=== PATIENT | female | born 1970 | race Caucasian/White ===

== ENCOUNTER 2020-01-09 15:03 | Inpatient (IN) | payer OTHER, MEDICAID, SELFPAY ==
[2020-01-09] VITALS (11 sets, daily range): BP systolic 109–139; BP diastolic 60–78; PULSE 84–108; RESP 17–33; TEMP 37.1–37.5; O2SAT 86–97; BMI 33.8
--- NOTE | ~2020-01-09 | US_ITS ---
EXAMINATION: US renal BI DATE: 01/10/2020 16:40 INDICATION: Left renal lesion TECHNIQUE: Multiple ultrasound grayscale images of the kidneys were obtained. COMPARISON: None. FINDINGS: The right kidney measures 9.9 x 5.0 x 4.9 cm. The left kidney measures 9.9 x 6.7 x 5.4 cm. The kidney s demonstrate normal echogenicity. 1.5 similar anechoic parapelvic cyst at the right kidney. There ar e a couple additional anechoic parapelvic cysts measuring 1.8 cm and 1.7 cm in the upper and lower po les of the left kidney respectively. There is a 2.8 cm lesion at the upper pole of the right kidney w hich appears partially anechoic and partially hypoechoic with suggestion of a small focus of internal vascular flow on color Doppler which raises concern for cystic neoplasm. There is no hydronephrosis in either kidney. No stones identified. The bladder is normal. IMPRESSION: 1. Indeterminate 2.8 cm likely complex cystic lesion at the left kidney with suggestion of some inte rnal flow on color Doppler which raises concern for renal cell carcinoma. Would recommend further sona luation with pre and postcontrast MRI for more definitive determination. Reviewed, dictated and finalized at location . [employer] IMPRESSION: 1. Indeterminate 2.8 cm likely complex cystic lesion at the left kidney with s uggestion of some internal flow on color Doppler which raises concern for renal cell carcinoma. Would recommend further evaluation with pre and postcontrast M RI for more definitive determination.
--- NOTE | ~2020-01-09 | XR_ITS ---
EXAMINATION: XR chest 1V portable DATE: 01/09/2020 17:44 INDICATION: Cough, dyspnea and body aches. COVID positive. TECHNIQUE: frontal view of the chest was obtained. COMPARISON: None FINDINGS: Mild scattered bilateral airspace opacities most prominent in the right midlung zone consistent with pneumonia. No pleural effusion or pneumothorax. The cardiomediastinal silhouette is normal. Mild thor acic spondylosis. IMPRESSION: 1. Bilateral airspace opacities most prominent in the right midlung consistent with pneumonia. Reviewed, dictated and finalized at location H. IER LOADER
--- NOTE | ~2020-01-09 | CT_ITS ---
EXAMINATION: CTA chest PE protocol EXAM DATE: 01/10/2020 15:25 INDICATION: Pleuritic discomfort, hypoxia, COVID-19. TECHNIQUE: Spiral CTA of the chest (pulmonary arteries) was performed with 100 cc Omnipaque 350 intr avenous contrast injection. Images were acquired during the pulmonary arterial phase. Coronal maxi mum intensity projection 3D-reconstructions were created by the technologist on dedicated workstation . Axial, coronal and sagittal reformatted images were reviewed. The dose-length product (DLP) for t his examination was 637.92 mGy-cm. The exposure was tailored according to patient size (auto mA exp osure control), and iterative reconstruction (ASIR) was used as additional dose reduction technique. There is no prior study for comparison. FINDINGS: Pulmonary arteries are well opacified and without intraluminal filling defects. No thora cic aortic dissection. Patchy bilateral peripheral predominant groundglass opacities with more confl uent atelectasis at dependent aspects of both lungs. Probably COVID-19 pneumonia. There are no pleur al or pericardial effusions. Tracheobronchial tree is patent. There is no mediastinal, hilar or a xillary lymphadenopathy. There is no pneumothorax. Heart normal in size. No evidence of coronar y arterial calcification. 2.5 cm lesion superior medial aspect right kidney, could be proteinaceous cyst but can't exclude cystic renal cell cancer; recommend follow-up ultrasound. There is thoracic s pondylosis without osteoblastic or osteolytic lesions identified. IMPRESSION: 1. Patchy bilateral peripheral ground glass opacities likely acute infectious process, such as COVID -19. 2. Dependent subsegmental atelectasis bilaterally. 3. Left renal lesion most likely hemorrhagic cyst but recommend kidney ultrasound for further evalua tion. Reviewed, dictated and finalized at location A. [employer] IMPRESSION: 1. Patchy bilateral peripheral ground glass opacities likely acute infectious process, such as COVID-19. 2. Dependent subsegmental atelectasis bilaterally. 3. Left renal lesion most likely hemorrhagic cyst but recommend kidney ultraso und for further evaluation.
--- NOTE | 2020-01-09 15:38 | ECG_ITS ---
Measurements Intervals [place] Rate: 89 P: 22 OK: 126 QRS: 22 QRSD: 89 T: 6 QT: 369 QTc: 451 Interpretive Statements SINUS RHYTHM BORDERLINE ST-T WAVE ABNORMALITY- DIFFUSE LEADS BASELINE ARTIFACT- I, III, AVL BORDERLINE ECG Electronically Signed On 01-10-2020 8:39:02 [employer]ACH[employer] by Pete Thompson D.O.
[2020-01-09 15:56] LABS: Basophils Percent Auto 0.2 % (0.2-1.2); Hematocrit 38.8 % (37.0-47.0); Hemoglobin 12.9 g/dL (12.0-15.0); Immature Granulocyte Absolute 0.02 K/mm3 (0.00-0.031); Immature Granulocyte Percent A 0.5 % (0-0.5); Lymphocytes Absolute Auto 0.93 K/mm3 (0.9-3.2); Lymphocytes Percent Auto 22.9 % (18.3-44.2); Mean Corpuscular HGB Conc 33.2 g/dl (32-36); Mean Corpuscular Volume 87.2 fl (80-100); Mean Platelet Volume 9.9 fl (7.4-10.4); Monocytes Absolute Auto 0.4 K/mm3 (0.1-0.6); Monocytes Percent Auto 10.1 % (2.6-8.5); Neutrophils Absolute Auto 2.7 K/mm3 (1.3-6.7); Neutrophils Percent Auto 66.3 % (45.5-73.1); Platelet Count Result 197 k/mm3 (150-375); Red Blood Count 4.45 M/mm3 (4.2-5.4); Red Cell Distribution Width 14.7 % (11.5-14.5); White Blood Count 4.1 K/mm3 (4.5-10.0)
[2020-01-09 16:04] LABS: Anion Gap 10 mmol/L (8-16); Blood Urea Nitrogen 9 mg/dL (7-17); Calcium 9.4 mg/dL (8.4-10.2); Carbon Dioxide 26 mmol/L (22-30); Chloride 103 mmol/L (98-107); Estimated CRCL calculation 80 ml/min; Estimated Glomerular Filt Rate > 60; Glucose 108 mg/dL (65-105); Potassium 4.1 mmol/L (3.4-5.0); Sodium 139 mmol/L (137-145)
[2020-01-09 16:13] LABS: Atypical Lymphocytes Present; Platelet Estimate Adequate (Adequate)
--- NOTE | 2020-01-09 17:59 | ED.SOB ---
HPI - SOB/Dyspnea General Chief Complaint: Shortness of Breath/Dyspnea Stated Complaint: + covid, sob Time Seen by Provider: 01/09/20 17:27 Source: patient Mode of arrival: wheelchair Limitations: no limitations History of Present Illness HPI Narrative: This is a 49 year old female that presents to the ER for shortness of breath x 5 days. Reports she was recently diagnosed with COVID. Reports fever, shortness of breath, myalgias, cough, congestion, and nausea. Denies chest pain or lower extremity edema. Related Data Allergies Allergy/AdvReac Type Severity Reaction Status Date / Time codeine Allergy Verified 07/23/11 16:05 Review of Systems Review of Systems: Narrative: CONSTITUTIONAL: Reports fever, chills ENT: Reports rhinorrhea, congestion CARDIOVASCULAR: Denies chest pain, or edema. RESPIRATORY: Reports cough and dyspnea. GASTROINTESTINAL: Reports nausea. Denies vomiting MUSCULOSKELETAL: Reports myalgia. All systems reviewed & are unremarkable except as noted in HPI and below PMFSH Past Medical History Medical History (Updated 01/09/20 @ 21:03 by Maggie Hidalgo PA-C) History of emphysema History of hypertension Surgical History Surgical History (Updated 01/09/20 @ 18:02 by Maggie Hidalgo PA-C) History of carpal tunnel release History of section Social History Social History (Updated 01/09/20 @ 18:02 by Maggie Hidalgo PA-C) Smoking status: Former smoker Exam Narrative: Exam Narrative: GENERAL: Well-appearing, well-nourished, and in no acute distress HEAD: Normocephalic, atraumatic. EYES: EOMI. ENT: Nares clear, no rhinorrhea or epistaxis. Mucous membranes moist. Oropharynx without tonsillar hypertrophy exudate or other lesions. Bilateral TMs pearly plummer non-bulging NECK: Supple. No adenopathy or masses. CHEST: No respiratory distress. Scattered rales bilaterally. No wheezes or rhonchi HEART: Regular rate and rhythm. No murmur heard. Normal peripheral pulses. EXTREMITIES: Normal range of motion. No edema. SKIN: Warm, dry, no rash. NEURO: No focal deficits. Alert and oriented x3. PSYCH: Normal mood and affect Course Consultations Consultation #1: Spoke with hospitalist about patient and work-up who accepts admission. Date: 01/09/20 Time: 21:02 Vital Signs Vital signs: Vital Signs Temperature 98.8 F 01/09/20 15:09 Pulse Rate 105 H 01/09/20 15:09 Respiratory Rate 23 H 01/09/20 15:09 Blood Pressure 139/78 01/09/20 15:09 Pulse Oximetry 92 01/09/20 15:09 Temperature 99.5 F 01/09/20 20:10 Pulse Rate 92 01/09/20 20:10 Respiratory Rate 18 01/09/20 20:10 Blood Pressure 123/74 01/09/20 20:10 Pulse Oximetry 93 01/09/20 20:10 MDM - SOB/Dyspnea MDM Narrative Medical decision making narrative: Patient presents to the emergency department for increasing shortness of breath after recently being diagnosed with coronavirus. Oxygen saturation was in the high 80s on room air. Patient initially placed on 4 L nasal cannula with normalization. Currently is maintaining oxygen saturation at 2 L via nasal cannula. She is afebrile and nontoxic-appearing. CBC is without leukocytosis. Metabolic panel shows mild transaminitis. LDH is elevated. Ferritin, lactic acid are normal. Chest x-ray shows bilateral airspace opacities consistent with Covid pneumonia. EKG with nonspecific ST changes. She denies any current chest pain. Spoke with hospitalist about patient and work-up who accepts admission. Patient started on Decadron in the ED and given albuterol inhaler with some improvement Lab Data Attestation: I reviewed the patient's lab results. Result diagrams: 01/09/20 15:46 01/09/20 15:46 Labs: Lab Results 01/09/20 01/09/20 01/09/20 Range/Units 15:46 15:46 18:18 WBC 4.1 L (4.5-10.0) K/mm3 RBC 4.45 (4.2-5.4) M/mm3 Hgb 12.9 (12.0-15.0) g/dL Hct 38.8 (37.0-47.0) % MCV 87.2 (80-100) fl MCH 29.0 (26-34) p
[2020-01-09 18:24] LABS: Alveolar/Arterial O2 Gradient 108.1 mmHg; Base Excess ABG -3.8 mEq/l (+/-2.0); Carboxyhemoglobin 1.3 % THb (0-2.0); Device NASAL CANNULA; Fractional Inspired Oxygen 30 %; HCO3 ABG 18.8 mEq/l (22.0-26.0); Liters per Minute 2.5 LPM; Methemoglobin ABG 0.3 %THb (0-1.5); Modified Allen's Test Pass; Oxygen Content ABG 17.1 %vol (16.0-22.0); Oxygen Saturation ABG 95.6 % (95.0-100.0); Oxyhemoglobin 92.1 % THb (90.0-100.0); PCO2 ABG 27.6 mmHg (35.0-45.0); PO2 ABG 73.4 mmHg (80.0-100.0); PO2 FiO2 Ratio Arterial Blood 2.45 %; Reduced Hemoglobin 6.3 %THb (0-5.0); Site Drawn RIGHT RADIAL; Total Hemoglobin 13.2 g/dL (12.0-18.0); pH ABG 7.451 (7.350-7.450)
[2020-01-09] MEDS: ALBUTEROL SULFATE (*SP) AEROSOL 1 PUFF 2 PUFF INHALATION (18:25)
[2020-01-09] MEDS: DEXAMETHASONE SOD PHOS INJ 4 MG/ML VIAL 6 MG IV PUSH (18:31)
[2020-01-09] MEDS: SODIUM CHLORIDE 0.9% IV 500 ML 999 ML IV CONT (18:31)
[2020-01-09 18:39] LABS: Lactic Acid Reflex 1.1 mmol/L (0.7-2.1)
[2020-01-09 18:41] LABS: Alanine Aminotransferase 40 U/L (4-35); Albumin Level 4.3 g/dL (3.5-5.1); Alkaline Phosphatase 60 U/L (38-126); Aspartate Amino Transferase 50 U/L (14-36); Bilirubin,Total 0.5 mg/dL (0.2-1.3); Lactate Dehydrogenase 992 U/L (313-618)
[2020-01-09 18:45] LABS: CRP 2.8 mg/dL (<1.0)
[2020-01-09 18:49] LABS: NT Pro B Type Natriuretic Pept 129 PG/ML (5-100)
--- NOTE | 2020-01-09 22:41 | ADMGEN ---
This patient, Oanh Nelson, was admitted to 3 [facility] Surg Room 327-01. Patient/family oriented to hospital policies and general routines including ID bracelet, bed and alarms, visiting hours, pain management, procedures, bathroom and other care routines, personal items, smoking policy, room service/diet, and visiting hours. Information on how to activate the Rapid Response Team has been discussed. Patient/Family are encouraged to report perceived risks to care and to ask questions if they do not understand what they are told or what they should do.
[2020-01-10] VITALS (13 sets, daily range): BP systolic 122–137; BP diastolic 71–77; PULSE 72–92; RESP 16–20; TEMP 35.9–36.9; O2SAT 87–93
--- NOTE | 2020-01-10 01:51 | PM.IMHP ---
H&P: HPI History of Present Illness Date/Time: 01/10/20 01:51 Chief complaint: Acute respiratory failure with hypoxemia Narrative: This is an obese 49-year-old female with known past medical history of emphysema, depression, and hypertension who presented to the hospital with a complaint of 4 days of increased shortness of breath. Associated symptoms include fever, generalized weakness, body aches, hacking cough, nausea, and congestion. She denies any chest pain, palpitations, abdominal pain, vomiting, dysuria, hematuria, diarrhea, lower extremity swelling, black stools, or rectal bleeding. she does report decreased urine output and states that her urine is dark in color. She recently tested positive for COVID-19. She reports positive sick contacts as her niece also is positive with Coronavirus. On arrival to the emergency room the patient was found to be saturating in the 80s on room air and was placed on 4 L of supplemental oxygen via nasal cannula. Routine labs demonstrated mild transaminitis and chest x-ray demonstrated bilateral airspace opacities consistent with COVID pneumonia. The patient was treated emergency room with bronchodilators and dexamethasone. We been asked admit the patient to the hospital for further care as she is requiring oxygen. She has no other complaints at this time. Review of Systems Review of Systems: All systems reviewed & are unremarkable except as noted in HPI and below PMFSH Past Medical History Medical History History of emphysema History of hypertension Surgical History Surgical History History of carpal tunnel release History of section Family History Family History Grandparent Colon cancer Diabetes mellitus Grandparent Throat cancer Grandparent Heart abnormality Father Hypertension Mother Alcoholism COPD (chronic obstructive pulmonary disease) Heart attack Social History Social History Smoking packs per day: 1 Smoking cigarettes per day: 20.0 Years smoked: 25 Smoking pack-years: 25.00 Smoking status: Former smoker Alcohol intake: former Substance use: never Gender identity (if verbalized by the patient): Female Spiritual care concerns: No Meds Home Medications and Allergies Home Medications Medication Instructions Recorded Confirmed Type cetirizine [Zyrtec] 10 mg PO DAILY 01/09/20 01/09/20 History metoprolol succinate 50 mg PO DAILY 01/09/20 01/09/20 History Allergies Allergy/AdvReac Type Severity Reaction Status Date / Time amitriptyline Allergy Rash Verified 01/09/20 23:08 codeine Allergy Nausea and Verified 01/09/20 23:08 Vomiting hydromorphone [From Dilaudid] Allergy Vomiting Verified 01/09/20 23:08 meperidine [From Demerol] Allergy Vomiting Verified 01/09/20 23:08 Vital Signs Vital Signs - 24 hr 01/09/20 15:09 01/09/20 17:29 01/09/20 17:31 Temperature 37.1 C Pulse Rate 105 H 105 H Respiratory Rate 23 H 26 H Blood Pressure 139/78 Pulse Oximetry 92 86 L 94 01/09/20 17:33 01/09/20 17:45 01/09/20 17:46 Temperature Pulse Rate 108 H 99 98 Respiratory Rate 21 H 33 H 27 H Blood Pressure 109/60 127/75 Pulse Oximetry 92 94 94 01/09/20 18:00 01/09/20 18:16 01/09/20 18:24 Temperature Pulse Rate 97 103 H 102 H Respiratory Rate 21 H 19 Blood Pressure Pulse Oximetry 96 97 01/09/20 20:10 01/09/20 22:00 Temperature 37.5 C Pulse Rate 92 84 Respiratory Rate 18 17 Blood Pressure 123/74 131/78 Pulse Oximetry 93 95 Exam Const: General: cooperative, alert, awake, ill appearing and other ( diaphoretic.) Nutritional Appearance: obese Orientation/consciousness: patient oriented x3 HENMT: Head: normal to inspection General nose exam: Normal exte
[2020-01-10 06:51] LABS: Basophils Percent Auto 0.4 % (0.2-1.2); Hematocrit 38.8 % (37.0-47.0); Hemoglobin 12.6 g/dL (12.0-15.0); Immature Granulocyte Absolute 0.01 K/mm3 (0.00-0.031); Immature Granulocyte Percent A 0.4 % (0-0.5); Lymphocytes Absolute Auto 0.56 K/mm3 (0.9-3.2); Lymphocytes Percent Auto 20.1 % (18.3-44.2); Mean Corpuscular HGB Conc 32.5 g/dl (32-36); Mean Corpuscular Hemoglobin 28.5 pg (26-34); Mean Corpuscular Volume 87.8 fl (80-100); Mean Platelet Volume 10.5 fl (7.4-10.4); Monocytes Absolute Auto 0.3 K/mm3 (0.1-0.6); Monocytes Percent Auto 9.4 % (2.6-8.5); Neutrophils Absolute Auto 1.9 K/mm3 (1.3-6.7); Neutrophils Percent Auto 69.7 % (45.5-73.1); Platelet Count Result 219 k/mm3 (150-375); Red Blood Count 4.42 M/mm3 (4.2-5.4); Red Cell Distribution Width 14.7 % (11.5-14.5); White Blood Count 2.8 K/mm3 (4.5-10.0)
[2020-01-10 07:10] LABS: Anion Gap 10 mmol/L (8-16); Blood Urea Nitrogen 12 mg/dL (7-17); Calcium 8.9 mg/dL (8.4-10.2); Carbon Dioxide 27 mmol/L (22-30); Chloride 105 mmol/L (98-107); Estimated CRCL calculation 89 ml/min; Estimated Glomerular Filt Rate > 60; Glucose 148 mg/dL (65-105); Magnesium 2.2 mg/dL (1.6-2.3); Sodium 142 mmol/L (137-145)
[2020-01-10] MEDS: DEXAMETHASONE SOD PHOS INJ 4 MG/ML VIAL 6 MG IV PUSH (08:18)
[2020-01-10] MEDS: LORATADINE 10 MG TABLET PO (08:19)
[2020-01-10] MEDS: METOPROLOL SUCCINATE EXT REL 50 MG TABCR PO (08:19)
[2020-01-10] MEDS: guaiFENesin/DEXTROMETHORPHAN 10 ML UDC PO ×3 (08:22→21:12)
[2020-01-10] MEDS: ALBUTEROL SULFATE (*SP) AEROSOL 1 PUFF 2 PUFF INHALATION ×3 (09:58→21:17)
--- NOTE | 2020-01-10 10:57 | ECG_ITS ---
Measurements Intervals [employer] Rate: 87 P: 42 FL: 122 QRS: 37 QRSD: 89 T: -14 QT: 345 QTc: 417 Interpretive Statements SINUS RHYTHM BORDERLINE ST-T WAVE ABNORMALITY- ANTEROLAT/INF LEADS BASELINE WANDER- V5-V6 BORDERLINE ECG Electronically Signed On 01-10-2020 13:12:10 THERAPY TECH by Pete Thompson D.O.
--- NOTE | 2020-01-10 10:58 | PM.IMPN ---
Progress Note: A&P Assessment and Plan (1) Acute respiratory failure with hypoxia: Code(s): J96.01 - Acute respiratory failure with hypoxia Status: Acute Assessment and Plan: Likely secondary to COVID pneumonia. She is not on oxygen prior to admission. Continue oxygen supplementation and wean off as tolerated. Continuous pulse oximetry. Continue the treatment of COVID pneumonia. Respiratory therapy input is appreciated. (2) Pneumonia due to 2019 novel coronavirus: Code(s): U07.1 - COVID-19; J12.89 - Other viral pneumonia Status: Acute Assessment and Plan: She reported worsening dyspnea for 5 days. She tested positive for COVID 01/03. CXR demonstrates bilateral airspace opacities which are most prominent in the right midlung. Dexamethasone was initiated 01/08 (day 2/) and remdesivir was initiated 01/09 (day 1/5) given ongoing hypoxia and oxygen requirements. Labs are consistent with COVID-19 and secondary bacterial infection is not suspected. Continue supportive care with droplet isolation, antitussives as needed, antipyretics as needed, and bronchodilators. Continue supplemental oxygen to maintain oxygen saturation of >93%. Wean as tolerated. Obtain sputum cultures and urine legionella and pneumococcal antigens. Add continuous pulse oximetry for closer monitoring. (3) Transaminitis: Code(s): R74.01 - Elevation of levels of liver transaminase levels Status: Acute Assessment and Plan: Mild transaminitis likely secondary to COVID pneumonia. Monitor liver function test. Will check hepatitis panel for completeness. (4) History of emphysema: Code(s): Z87.09 - Personal history of other diseases of the respiratory system Status: Chronic Assessment and Plan: Continue steroids and bronchodilators. (5) History of hypertension: Code(s): Z86.79 - Personal history of other diseases of the circulatory system Status: Chronic Assessment and Plan: Blood pressures are well-controlled. Continue metoprolol succinate. Continue to monitor. (6) Pleuritic pain: Code(s): R07.81 - Pleurodynia Status: Acute Assessment and Plan: Check STAT troponin, EKG, and chest CTA. Pleuritis is felt most likely but need to r/o pulmonary embolism. ACS felt unlikely. Subjective Date/time seen: 01/10/20 10:58 Mrs. Nelosn is a 49 y.o. female with PMH significant for emphysema, former smoker, and hypertension who is seen in follow-up for COVID-19 pneumonia. She reports discomfort throughout her chest and back with coughing, talking, and deep breathing. She reports this is ongoing since her hacking cough developed. She states that the pain is throughout her rib cage as opposed to sub-sternal. There is no radiation to the left neck or arm. Pain is not worse with exertion. She is not having any palpitations. She complains of dyspnea with rest and exertion. She notes that everything tastes old and smells bad. She notes bowels are relatively regular with one looser brown stool today. She reports that she did have some blood-tinged sputum 3 days ago but sputum is yellow today. Review of Systems Review of Systems: All systems reviewed & are unremarkable except as noted in HPI and below Exam Narrative: Exam Narrative: General: Well-developed, cooperative, and appears to be in no acute distress. HEENT: Normocephalic and atraumatic. Conjunctivae and lids normal. PERRL. EOMI. Oral mucosa tacky. Neck: Supple. Cardiac: Regular rate and rhythm. S1 and S2 normal. No murmur appreciated. Chest: Chest wall tenderness present. No crepitus. Lungs: On 3 liters per nasal cannula. Respirations are mildly labored and she has a hacking cough with deep breathing and talking. Lungs have rales in the bases bilaterally, worse on the right. Abdomen: Appearance grossly normal. Bowel sounds present in all four quadrants. Abdomen is soft, non-distended, an
[2020-01-10] MEDS: REMDESIVIR 200 MG/NS 250 ML 200 MG/250 ML BAG 250 MG IVPB (11:14)
[2020-01-10] MEDS: ACETAMINOPHEN 325 MG TABLET 650 MG PO ×2 (11:15→17:05)
[2020-01-10 11:46] LABS: Troponin I < 0.012 ng/mL (0.000-0.034)
[2020-01-10 14:33] LABS: Beta HCG Quantitative < 2.39 mIU/ML
[2020-01-10 17:34] LABS: Troponin I < 0.012 ng/mL (0.000-0.034)
--- NOTE | 2020-01-10 17:49 | PCRCNOTE ---
Window of time for administration has passed. See next scheduled administration.
[2020-01-10] MEDS: ENOXAPARIN 40 MG/0.4 ML SYRINGE SUB-Q (21:12)
[2020-01-10] MEDS: LORazepam (*CRX) 0.5 MG TABLET PO (21:56)
[2020-01-10 22:18] LABS: Add Urine Microscopic? YES; Appearance Urine Clear (Clear); Bilirubin Urine Negative (Negative); Blood Urine 3+ (Negative); Color Urine Yellow (Yellow); Glucose Urine UA 1+ mg/dL (Negative); Ketones Urine Negative (Negative); Leukocyte Esterase Ur Negative LEU/UL (Negative); Mucus Urine Rare /lpf; Nitrate Urine Negative (Negative); Protein Urine 1+ mg/dL (Negative); Squamous Epithelial Cell Urine Few /hpf (Few); WBC Urine 0-3 /hpf
[2020-01-10 22:25] LABS: Specific Grav Ur 1.046 (1.001-1.035)
[2020-01-11] VITALS (11 sets, daily range): BP systolic 123–148; BP diastolic 69–86; PULSE 71–97; RESP 16–20; TEMP 36.1–37.1; O2SAT 92–97
[2020-01-11 06:49] LABS: Basophils Percent Auto 0.3 % (0.2-1.2); Eosinophils Percent Auto 0.3 % (0-4.4); Hematocrit 37.5 % (37.0-47.0); Hemoglobin 12.3 g/dL (12.0-15.0); Immature Granulocyte Absolute 0.03 K/mm3 (0.00-0.031); Immature Granulocyte Percent A 0.5 % (0-0.5); Lymphocytes Absolute Auto 1.17 K/mm3 (0.9-3.2); Mean Corpuscular HGB Conc 32.8 g/dl (32-36); Mean Corpuscular Hemoglobin 28.5 pg (26-34); Mean Platelet Volume 10.2 fl (7.4-10.4); Monocytes Absolute Auto 0.5 K/mm3 (0.1-0.6); Monocytes Percent Auto 8.6 % (2.6-8.5); Neutrophils Absolute Auto 4.4 K/mm3 (1.3-6.7); Neutrophils Percent Auto 71.3 % (45.5-73.1); Platelet Count Result 256 k/mm3 (150-375); Red Blood Count 4.31 M/mm3 (4.2-5.4); Red Cell Distribution Width 14.6 % (11.5-14.5); White Blood Count 6.2 K/mm3 (4.5-10.0)
[2020-01-11 07:00] LABS: Alanine Aminotransferase 29 U/L (4-35); Albumin Level 3.8 g/dL (3.5-5.1); Alkaline Phosphatase 52 U/L (38-126); Anion Gap 9 mmol/L (8-16); Aspartate Amino Transferase 28 U/L (14-36); Bilirubin,Total 0.3 mg/dL (0.2-1.3); Blood Urea Nitrogen 16 mg/dL (7-17); CRP 1.3 mg/dL (<1.0); Calcium 8.8 mg/dL (8.4-10.2); Carbon Dioxide 25 mmol/L (22-30); Chloride 108 mmol/L (98-107); Creatine Kinase 226 U/L (30-135); Estimated CRCL calculation 89 ml/min; Estimated Glomerular Filt Rate > 60; Glucose 102 mg/dL (65-105); Lactate Dehydrogenase 761 U/L (313-618); Potassium 3.8 mmol/L (3.4-5.0); Sodium 142 mmol/L (137-145)
[2020-01-11 07:41] LABS: Hepatitis B Surface Antigen Negative (Negative)
[2020-01-11 07:46] LABS: HAV RESULT Negative (Negative); Hepatitis B Core IgM Result Negative (Negative)
[2020-01-11 07:58] LABS: Hepatitis C Virus Antibody Negative (Negative)
[2020-01-11] MEDS: DEXAMETHASONE SOD PHOS INJ 4 MG/ML VIAL 6 MG IV PUSH (08:04)
[2020-01-11] MEDS: ACETAMINOPHEN 325 MG TABLET 650 MG PO ×3 (08:05→21:05)
[2020-01-11] MEDS: ENOXAPARIN 40 MG/0.4 ML SYRINGE SUB-Q ×2 (08:05→21:05)
[2020-01-11] MEDS: METOPROLOL SUCCINATE EXT REL 50 MG TABCR PO (08:05)
[2020-01-11] MEDS: ALBUTEROL SULFATE (*SP) AEROSOL 1 PUFF 2 PUFF INHALATION ×4 (08:12→21:32)
[2020-01-11] MEDS: FLUoxetine HCL 10 MG CAPSULE PO (09:23)
[2020-01-11] MEDS: SALINE 0.65% NAS SOLN 44 ML BTL 1 SPRAY NASAL (09:23)
[2020-01-11] MEDS: ARIPiprazole 5 MG TABLET PO (09:23)
[2020-01-11] MEDS: REMDESIVIR 100 MG/NS 250 ML 100 MG/250 ML BAG 250 MG IVPB (09:23)
--- NOTE | 2020-01-11 13:46 | PM.IMPN ---
Progress Note: A&P Assessment and Plan (1) Acute respiratory failure with hypoxia: Code(s): J96.01 - Acute respiratory failure with hypoxia Status: Acute Assessment and Plan: Likely secondary to COVID pneumonia. She is not on oxygen prior to admission. Continue oxygen supplementation and wean as tolerated. Continue the treatment of COVID pneumonia. Respiratory therapy input is appreciated. (2) Pneumonia due to 2019 novel coronavirus: Code(s): U07.1 - COVID-19; J12.89 - Other viral pneumonia Status: Acute Assessment and Plan: She reported worsening dyspnea for 5 days. She tested positive for COVID 01/03. CXR demonstrates bilateral airspace opacities which are most prominent in the right midlung. Dexamethasone was initiated 01/08 (day 3/10) and remdesivir was initiated 01/09 (day 2/5) given ongoing hypoxia and oxygen requirements. Labs are consistent with COVID-19 and secondary bacterial infection is not suspected. Continue supportive care with droplet isolation, antitussives as needed, antipyretics as needed, and bronchodilators. Continue supplemental oxygen to maintain oxygen saturation of >93%. Wean as tolerated. Sputum cultures and urine legionella and pneumococcal antigens are pending. (3) Transaminitis: Code(s): R74.01 - Elevation of levels of liver transaminase levels Status: Acute Assessment and Plan: Mild transaminitis likely secondary to COVID pneumonia. Liver enzymes have normalized today. Hepatitis panel was negative. (4) History of emphysema: Code(s): Z87.09 - Personal history of other diseases of the respiratory system Status: Chronic Assessment and Plan: Continue steroids and bronchodilators. (5) History of hypertension: Code(s): Z86.79 - Personal history of other diseases of the circulatory system Status: Chronic Assessment and Plan: Blood pressures are well-controlled. Continue metoprolol succinate. Continue to monitor. (6) Pleuritic pain: Code(s): R07.81 - Pleurodynia Status: Acute Assessment and Plan: Secondary to pleuritis from repetitive coughing in the setting of COVID-19 pneumonia. Troponin and EKG were negative for ACS. Chest CTA was negative for PE. Continue supportive care. (7) Anxiety: Code(s): F41.9 - Anxiety disorder, unspecified Status: Acute Assessment and Plan: Resume abilify. She was taking fluoxetine as well at 50mg. Will resume this as well but at a lower dose to start. Subjective Date/time seen: 01/11/20 13:46 Mrs. Nelson is a 49 y.o. female with PMH significant for emphysema, former smoker, and hypertension who is seen in follow-up for COVID-19 pneumonia. She is doing better today but oxygen requirements did increase overnight to 4 liters per nasal cannula. She still has dyspnea with exertion but dyspnea at rest has improved. She is coughing occasionally with pink-yellow sputum. She reports intermittent rigors/chills. Appetite has improved minimally but things are still tasting poor. She had a loose brown bowel movement yesterday but no further bowel movements today. She did feel like she noticed some red sediment in her urine but no ronit hematuria. She is not having any chest pain. She noted that she has been suffering from anxiety and depression. She recently moved to the area and was unable to establish care with a PCP. She was taking abilify and fluoxetine prior to moving. She has been off both of these medications for 1-2 months because her prescriptions ran out. She would like to resume these. Review of Systems Review of Systems: All systems reviewed & are unremarkable except as noted in HPI and below Exam Narrative: Exam Narrative: General: Pleasant, well-developed and well-nourished 49 y.o. female lying supine resting comfortably in no acute distress. HEENT: Normocephalic and atraumatic. Oral mucosa moist. Neck: Supp
[2020-01-11] MEDS: LORATADINE 10 MG TABLET PO (16:51)
[2020-01-11] MEDS: guaiFENesin/DEXTROMETHORPHAN 10 ML UDC PO ×2 (16:52→21:05)
[2020-01-12] VITALS (9 sets, daily range): BP systolic 128–151; BP diastolic 66–77; PULSE 68–78; RESP 16–20; TEMP 36.6–37.3; O2SAT 91–98
[2020-01-12] MEDS: ACETAMINOPHEN 325 MG TABLET 650 MG PO ×3 (03:36→18:13)
[2020-01-12 06:46] LABS: Hematocrit 35.8 % (37.0-47.0); Mean Corpuscular HGB Conc 33.5 g/dl (32-36); Mean Corpuscular Hemoglobin 29.3 pg (26-34); Mean Corpuscular Volume 87.5 fl (80-100); Mean Platelet Volume 10.2 fl (7.4-10.4); Platelet Count Result 280 k/mm3 (150-375); Red Blood Count 4.09 M/mm3 (4.2-5.4); Red Cell Distribution Width 14.8 % (11.5-14.5); White Blood Count 6.6 K/mm3 (4.5-10.0)
[2020-01-12 07:05] LABS: Alanine Aminotransferase 22 U/L (4-35); Albumin Level 3.4 g/dL (3.5-5.1); Alkaline Phosphatase 47 U/L (38-126); Anion Gap 7 mmol/L (8-16); Aspartate Amino Transferase 18 U/L (14-36); Bilirubin,Total 0.3 mg/dL (0.2-1.3); Blood Urea Nitrogen 19 mg/dL (7-17); CRP 1.2 mg/dL (<1.0); Calcium 8.7 mg/dL (8.4-10.2); Carbon Dioxide 27 mmol/L (22-30); Chloride 106 mmol/L (98-107); Creatine Kinase 124 U/L (30-135); Estimated CRCL calculation 89 ml/min; Estimated Glomerular Filt Rate > 60; Glucose 103 mg/dL (65-105); Lactate Dehydrogenase 596 U/L (313-618); Potassium 3.8 mmol/L (3.4-5.0); Sodium 140 mmol/L (137-145)
[2020-01-12] MEDS: ALBUTEROL SULFATE (*SP) AEROSOL 1 PUFF 2 PUFF INHALATION ×4 (08:39→21:18)
[2020-01-12] MEDS: ARIPiprazole 5 MG TABLET PO (08:52)
[2020-01-12] MEDS: FLUoxetine HCL 10 MG CAPSULE PO (08:52)
[2020-01-12] MEDS: guaiFENesin/DEXTROMETHORPHAN 10 ML UDC PO ×2 (08:52→18:15)
[2020-01-12] MEDS: ENOXAPARIN 40 MG/0.4 ML SYRINGE SUB-Q ×2 (08:52→20:37)
[2020-01-12] MEDS: DEXAMETHASONE SOD PHOS INJ 4 MG/ML VIAL 6 MG IV PUSH (08:52)
[2020-01-12] MEDS: METOPROLOL SUCCINATE EXT REL 50 MG TABCR PO (08:52)
[2020-01-12] MEDS: REMDESIVIR 100 MG/NS 250 ML 100 MG/250 ML BAG 250 MG IVPB (08:53)
--- NOTE | 2020-01-12 12:10 | PM.IMPN ---
Progress Note: A&P Assessment and Plan (1) Acute respiratory failure with hypoxia: Code(s): J96.01 - Acute respiratory failure with hypoxia Status: Acute Assessment and Plan: Likely secondary to COVID pneumonia. She is not on oxygen prior to admission. Continue oxygen supplementation and wean as tolerated. Continue the treatment of COVID pneumonia. Respiratory therapy input is appreciated. (2) Pneumonia due to 2019 novel coronavirus: Code(s): U07.1 - COVID-19; J12.89 - Other viral pneumonia Status: Acute Assessment and Plan: She reported worsening dyspnea for 5 days. She tested positive for COVID 01/03. CXR demonstrates bilateral airspace opacities which are most prominent in the right midlung. Dexamethasone was initiated 01/08 (day 06/01) and remdesivir was initiated 01/09 (day 04/26) given ongoing hypoxia and oxygen requirements. Labs are consistent with COVID-19 and secondary bacterial infection is not suspected. Continue supportive care with droplet isolation, antitussives as needed, antipyretics as needed, PEP therapy, incentive spirometry, and bronchodilators. Oxygen requirements have increasd to 5 liters per nasal cannula. ABG was ordered given increased work of breathing and has improved. Continue supplemental oxygen to maintain oxygen saturation of >93%. Wean as tolerated. Sputum cultures show gram negative bacilli. Will start levaquin (day 02/26, initiated 01/11). Urine legionella and pneumococcal antigens are pending. (3) Transaminitis: Code(s): R74.01 - Elevation of levels of liver transaminase levels Status: Acute Assessment and Plan: Mild transaminitis likely secondary to COVID pneumonia. Liver enzymes have normalized. Hepatitis panel was negative. (4) History of emphysema: Code(s): Z87.09 - Personal history of other diseases of the respiratory system Status: Chronic Assessment and Plan: Continue steroids and bronchodilators. (5) History of hypertension: Code(s): Z86.79 - Personal history of other diseases of the circulatory system Status: Chronic Assessment and Plan: Blood pressures are well-controlled. Continue metoprolol succinate. Continue to monitor. (6) Pleuritic pain: Code(s): R07.81 - Pleurodynia Status: Resolved Assessment and Plan: Resolved. Secondary to pleuritis from repetitive coughing in the setting of COVID-19 pneumonia. Troponin and EKG were negative for ACS. Chest CTA was negative for PE. Continue supportive care. (7) Anxiety: Code(s): F41.9 - Anxiety disorder, unspecified Status: Acute Assessment and Plan: Resume abilify. She was taking fluoxetine as well at 50mg. Resume fluoxetine as well and will titrate slowly. Additional Plan Subjective Date/time seen: 01/12/20 12:10 Mrs. Nelson is a 49 y.o. female with PMH significant for emphysema, former smoker, and hypertension who is seen in follow-up for COVID-19 pneumonia. She reports that she is feeling a little better today. Oxygen requirements increased to 5 liters per nasal cannula. She still has dyspnea when she speaks with her son but feels better overall. She is having a little less dyspnea with exertion than previously. She does not have any chest pain, pleuritic pain, or palpitations. She denies subjective fever and chills. She has not had a bowel movement yet today. Cough is predominantly non-productive. She has no lower extremity edema or pain. Review of Systems Review of Systems: All systems reviewed & are unremarkable except as noted in HPI and below Exam Narrative: Exam Narrative: General: Well-developed and well-nourished 49 y.o. female lying semi-recumbent in bed in no acute distress. HEENT: Normocephalic and atraumatic. Moist oral mucosa. Neck: Supple. Cardiac: Regular rate and rhythm. S1 and S2 normal. Lungs: On 5 liters per nasal cannula. She does get short of breat
[2020-01-12 14:03] LABS: Alveolar/Arterial O2 Gradient 158.3 mmHg; Base Excess ABG -0.5 mEq/l (+/-2.0); Carboxyhemoglobin 0.3 % THb (0-2.0); Fractional Inspired Oxygen 40 %; Oxygen Content ABG 17.8 %vol (16.0-22.0); Oxygen Saturation ABG 97.1 % (95.0-100.0); Oxyhemoglobin 95.6 % THb (90.0-100.0); PCO2 ABG 34.2 mmHg (35.0-45.0); PO2 ABG 87.6 mmHg (80.0-100.0); PO2 FiO2 Ratio Arterial Blood 2.19 %; Reduced Hemoglobin 4.1 %THb (0-5.0); Total Hemoglobin 13.2 g/dL (12.0-18.0); pH ABG 7.445 (7.350-7.450)
[2020-01-12 14:04] LABS: Device NASAL CANNULA; Modified Allen's Test Pass; Site Drawn LEFT RADIAL
[2020-01-12] MEDS: LORATADINE 10 MG TABLET PO (18:15)
[2020-01-13] VITALS (11 sets, daily range): BP systolic 107–146; BP diastolic 53–78; PULSE 69–88; RESP 14–20; TEMP 36.4–37.1; O2SAT 92–99
[2020-01-13 07:15] LABS: Basophils Percent Auto 0.2 % (0.2-1.2); Eosinophils Percent Auto 0.3 % (0-4.4); Hematocrit 34.9 % (37.0-47.0); Hemoglobin 11.7 g/dL (12.0-15.0); Immature Granulocyte Absolute 0.07 K/mm3 (0.00-0.031); Immature Granulocyte Percent A 0.8 % (0-0.5); Lymphocytes Absolute Auto 1.22 K/mm3 (0.9-3.2); Lymphocytes Percent Auto 14.2 % (18.3-44.2); Mean Corpuscular HGB Conc 33.5 g/dl (32-36); Mean Corpuscular Hemoglobin 28.7 pg (26-34); Mean Corpuscular Volume 85.5 fl (80-100); Monocytes Absolute Auto 0.9 K/mm3 (0.1-0.6); Monocytes Percent Auto 10.2 % (2.6-8.5); Neutrophils Absolute Auto 6.4 K/mm3 (1.3-6.7); Neutrophils Percent Auto 74.3 % (45.5-73.1); Platelet Count Result 307 k/mm3 (150-375); Red Blood Count 4.08 M/mm3 (4.2-5.4); Red Cell Distribution Width 14.5 % (11.5-14.5); White Blood Count 8.6 K/mm3 (4.5-10.0)
[2020-01-13 07:33] LABS: Alanine Aminotransferase 22 U/L (4-35); Albumin Level 3.4 g/dL (3.5-5.1); Alkaline Phosphatase 46 U/L (38-126); Anion Gap 8 mmol/L (8-16); Aspartate Amino Transferase 20 U/L (14-36); Bilirubin,Total 0.3 mg/dL (0.2-1.3); Blood Urea Nitrogen 16 mg/dL (7-17); CRP 2.2 mg/dL (<1.0); Calcium 8.6 mg/dL (8.4-10.2); Carbon Dioxide 26 mmol/L (22-30); Chloride 104 mmol/L (98-107); Creatine Kinase 91 U/L (30-135); Estimated CRCL calculation 89 ml/min; Estimated Glomerular Filt Rate > 60; Glucose 106 mg/dL (65-105); Lactate Dehydrogenase 541 U/L (313-618); Potassium 3.9 mmol/L (3.4-5.0); Sodium 138 mmol/L (137-145)
[2020-01-13] MEDS: ALBUTEROL SULFATE (*SP) AEROSOL 1 PUFF 2 PUFF INHALATION ×3 (08:54→20:37)
[2020-01-13] MEDS: ENOXAPARIN 40 MG/0.4 ML SYRINGE SUB-Q ×2 (09:29→20:11)
[2020-01-13] MEDS: ARIPiprazole 5 MG TABLET PO (09:29)
[2020-01-13] MEDS: LORATADINE 10 MG TABLET PO (09:29)
[2020-01-13] MEDS: DEXAMETHASONE SOD PHOS INJ 4 MG/ML VIAL 6 MG IV PUSH (09:29)
[2020-01-13] MEDS: FLUoxetine HCL 10 MG CAPSULE PO (09:30)
[2020-01-13] MEDS: REMDESIVIR 100 MG/NS 250 ML 100 MG/250 ML BAG 250 MG IVPB (09:30)
[2020-01-13] MEDS: METOPROLOL SUCCINATE EXT REL 50 MG TABCR PO (09:30)
[2020-01-13] MEDS: ACETAMINOPHEN 325 MG TABLET 650 MG PO (09:34)
--- NOTE | 2020-01-13 11:30 | PM.IMPN ---
Progress Note: A&P Assessment and Plan (1) Acute respiratory failure with hypoxia: Code(s): J96.01 - Acute respiratory failure with hypoxia Status: Acute Assessment and Plan: Likely secondary to COVID pneumonia. She is not on oxygen prior to admission. Continue oxygen supplementation and wean as tolerated. Continue the treatment of COVID pneumonia. Respiratory therapy input is appreciated. (2) Pneumonia due to 2019 novel coronavirus: Code(s): U07.1 - COVID-19; J12.89 - Other viral pneumonia Status: Acute Assessment and Plan: She reported worsening dyspnea for 5 days. She tested positive for COVID 01/03. CXR demonstrates bilateral airspace opacities which are most prominent in the right midlung. Dexamethasone was initiated 01/08 (day 5/10) and remdesivir was initiated 01/09 (day 4/5) given ongoing hypoxia and oxygen requirements. Preliminary sputum culture shows gram negative bacilli and levaquin was initiated 01/11 (day 2/7). Continue supportive care with droplet isolation, antitussives as needed, antipyretics as needed, PEP therapy, incentive spirometry, and bronchodilators. She is no longer requiring supplemental oxygen. Continue supplemental oxygen if needed to maintain oxygen saturation of >93%. Urine legionella and pneumococcal antigens are pending. (3) Transaminitis: Code(s): R74.01 - Elevation of levels of liver transaminase levels Status: Acute Assessment and Plan: Mild transaminitis likely secondary to COVID pneumonia. Liver enzymes have normalized. Hepatitis panel was negative. (4) History of emphysema: Code(s): Z87.09 - Personal history of other diseases of the respiratory system Status: Chronic Assessment and Plan: Continue steroids and bronchodilators. (5) History of hypertension: Code(s): Z86.79 - Personal history of other diseases of the circulatory system Status: Chronic Assessment and Plan: Blood pressures are well-controlled. Continue metoprolol succinate. Continue to monitor. (6) Pleuritic pain: Code(s): R07.81 - Pleurodynia Status: Resolved Assessment and Plan: Resolved. Secondary to pleuritis from repetitive coughing in the setting of COVID-19 pneumonia. Troponin and EKG were negative for ACS. Chest CTA was negative for PE. Continue supportive care. (7) Anxiety: Code(s): F41.9 - Anxiety disorder, unspecified Status: Acute Assessment and Plan: Resume abilify. She was taking fluoxetine as well at 50mg. Continue fluoxetine. Subjective Date/time seen: 01/13/20 11:30 Mrs. Nelson is a 49 y.o. female with PMH significant for emphysema, former smoker, and hypertension who is seen in follow-up for COVID-19 pneumonia with sputum culture positive for gram negative bacilli suggesting possible secondary bacterial infection. She feels significantly better today. She is breathing much easier and she was weaned to room air today and doing well. She got up to ambulate to the bathroom and only felt minimally short of breath. Cough has improved although she still has occasional hacking cough. She is not having any chest pain or pleuritic pain. Food still tastes poor. Appetite is okay. She hopes to go home soon. Review of Systems Review of Systems: All systems reviewed & are unremarkable except as noted in HPI and below Exam Narrative: Exam Narrative: General: Well-developed and well-nourished 49 y.o. female lying semi-recumbent in bed in no acute distress. HEENT: Normocephalic and atraumatic. Oral mucosa moist and posterior pharynx clear. Neck: Supple. Cardiac: Regular rate and rhythm. S1 and S2 normal. Lungs: Tolerating room air with no significant increased work of breathing. Rales at the lower lung choe, more prominent on the right. Abdomen: Normoactive bowel sounds. Abdomen is soft, non-distended, and non-tender. Extremities: No lower extrem
[2020-01-13] MEDS: guaiFENesin/DEXTROMETHORPHAN 10 ML UDC PO ×2 (12:40→22:36)
--- NOTE | 2020-01-13 17:32 | PCRCNOTE ---
Window of time for administration has passed. See next scheduled administration.
[2020-01-14] VITALS (9 sets, daily range): BP systolic 120–134; BP diastolic 66–81; PULSE 75–93; RESP 16–22; TEMP 36.8–37.2; O2SAT 91–96
[2020-01-14] MEDS: ACETAMINOPHEN 325 MG TABLET 650 MG PO (03:59)
[2020-01-14 08:41] LABS: Hematocrit 37.4 % (37.0-47.0); Hemoglobin 12.5 g/dL (12.0-15.0); Mean Corpuscular HGB Conc 33.4 g/dl (32-36); Mean Corpuscular Hemoglobin 29.1 pg (26-34); Platelet Count Result 362 k/mm3 (150-375); Red Cell Distribution Width 14.9 % (11.5-14.5); White Blood Count 9.2 K/mm3 (4.5-10.0)
[2020-01-14 09:00] LABS: Alanine Aminotransferase 41 U/L (4-35); Estimated CRCL calculation 89 ml/min; Estimated Glomerular Filt Rate > 60
[2020-01-14 09:07] LABS: Alanine Aminotransferase 42 U/L (4-35); Albumin Level 3.6 g/dL (3.5-5.1); Alkaline Phosphatase 50 U/L (38-126); Anion Gap 9 mmol/L (8-16); Aspartate Amino Transferase 50 U/L (14-36); Bilirubin,Total 0.4 mg/dL (0.2-1.3); Blood Urea Nitrogen 18 mg/dL (7-17); CRP 2.7 mg/dL (<1.0); Calcium 8.9 mg/dL (8.4-10.2); Carbon Dioxide 25 mmol/L (22-30); Chloride 104 mmol/L (98-107); Estimated CRCL calculation 79 ml/min; Estimated Glomerular Filt Rate > 60; Glucose 105 mg/dL (65-105); Potassium 3.8 mmol/L (3.4-5.0); Sodium 138 mmol/L (137-145)
[2020-01-14] MEDS: guaiFENesin/DEXTROMETHORPHAN 10 ML UDC PO (09:07)
[2020-01-14] MEDS: METOPROLOL SUCCINATE EXT REL 50 MG TABCR PO (09:08)
[2020-01-14] MEDS: ARIPiprazole 5 MG TABLET PO (09:08)
[2020-01-14] MEDS: FLUoxetine HCL 10 MG CAPSULE PO (09:08)
[2020-01-14] MEDS: DEXAMETHASONE SOD PHOS INJ 4 MG/ML VIAL 6 MG IV PUSH (09:08)
[2020-01-14] MEDS: LORATADINE 10 MG TABLET PO (09:09)
[2020-01-14] MEDS: ENOXAPARIN 40 MG/0.4 ML SYRINGE SUB-Q (09:09)
[2020-01-14] MEDS: ALBUTEROL SULFATE (*SP) AEROSOL 1 PUFF 2 PUFF INHALATION ×2 (09:50→12:53)
[2020-01-14] MEDS: REMDESIVIR 100 MG/NS 250 ML 100 MG/250 ML BAG 250 MG IVPB (09:54)
--- NOTE | 2020-01-14 10:38 | PM.DS ---
DS: Admitting Diagnosis Admitting Diagnosis Admitting Diagnosis: Acute respiratory failure with hypoxemia DS: Discharge Diagnosis Discharge Diagnosis (1) Pneumonia due to 2019 novel coronavirus: Code(s): U07.1 - COVID-19; J12.89 - Other viral pneumonia Status: Acute Assessment and Plan: Discharge Summary (Date of service 01/14/20): Mrs. Nelson is a 49 y.o. female with PMH significant for emphysema, former smoker, and hypertension who presented to the emergency department 01/09/20 for worsening dyspnea for 5 days. She tested positive for COVID 01/04/20. She was hypoxic on arrival to the emergency department with oxygen saturations in the upper 80s. She was placed on 4 liters supplemental oxygen via nasal cannula on arrival. CXR demonstrated bilateral airspace opacities, most prominent in the right midlung. She was treated with dexamethasone and admitted to the hospitalist service. Remdesivir was initiated 01/09 given ongoing oxygen requirements. Preliminary sputum culture showed gram negative bacilli so levaquin was initiated 01/11. She had pleuritic discomfort initially which she felt was due to constant, hacking cough. Troponin and EKG were negative for ACS. Chest CTA was negative for PE. Supportive care was provided and her pain resolved with treatment of her pneumonia. Her dyspnea improved and she was weaned to room air. She completed 5 days of remdesivir and she was discharged on PO dexamethasone to complete a 10 day course. Chest CTA demonstrated 2.8 cm lesion at the upper pole of the left kidney which appears partially anechoic and partially hypoechoic with suggestion of a small focus of internal vascular flow on color Doppler which raises concern for cystic neoplasm. She will need an MRI for further evaluation and was given an order to have this done outpatient once she has recovered from her acute illness. I stressed the importance of having this completed and recommended she have this done within 2 weeks. She is new to the area and she was provided with the information for the primary care doctor emulsion coater. She verbalized understanding with the need to establish care with a primary care doctor and follow-up MRI. She felt much better and requested to go home. She was discharged in hemodynamically stable condition on the afternoon of 01/14/20. She was advised to monitor for any recurrent or worsening symptoms and understood reasons to seek emergent care. She was advised to quarantine per CDC guidelines. (2) Acute respiratory failure with hypoxia: Code(s): J96.01 - Acute respiratory failure with hypoxia Status: Resolved Assessment and Plan: Resolved. Secondary to COVID pneumonia. Chest CTA was negative for pulmonary embolism. She was weaned to room air 01/13/20. Home oxygen evaluation was performed and she did not require supplemental oxygen with activity. (3) Transaminitis: Code(s): R74.01 - Elevation of levels of liver transaminase levels Status: Resolved Assessment and Plan: Mild transaminitis was likely secondary to COVID pneumonia. Liver enzymes normalized. Hepatitis panel was negative. (4) History of emphysema: Code(s): Z87.09 - Personal history of other diseases of the respiratory system Status: Chronic Assessment and Plan: Not in acute exacerbation. Steroids and bronchodilators were continued. (5) History of hypertension: Code(s): Z86.79 - Personal history of other diseases of the circulatory system Status: Chronic Assessment and Plan: Blood pressures were well-controlled. Metoprolol succinate was continued. (6) Pleuritic pain: Code(s): R07.81 - Pleurodynia Status: Resolved Assessment and Plan: Resolved. Secondary to pleuritis from repetitive coughing in the setting of COVID-19 pneumonia. Troponin and EKG were negative for ACS. Chest CTA was negative for PE. Supportive care was provided. (7) An
[2020-01-14 17:16] LABS: Pneumococcal Antigen Urine Not Detected (Not Detected)
[2020-01-15 06:37] LABS: Legionella pneumophila Ag Ur Not Detected (Not Detected)
== END 2020-01-14 13:35 | disposition home or self-care (01) | DRG 177 ==
LOC: ANHED 21:03 → ANH3MEDSUR 01-10 07:02
PROVIDERS: Emergency Medicine; Physician Assistant; Admitting Provider Family Medicine; Emergency Provider Emergency Medicine; Visit Provider Physician Assistant
DX: U07.1 COVID-19 (principal); J12.89 Other viral pneumonia; J96.01 Acute respiratory failure with hypoxia; J43.9 Emphysema, unspecified; R74.01 Elevation of levels of liver transaminase levels; F32.9 Major depressive disorder, single episode, unspecified; I10 Essential (primary) hypertension; F41.9 Anxiety disorder, unspecified; N28.1 Cyst of kidney, acquired; R07.81 Pleurodynia; Z79.899 Other long term (current) drug therapy; Z87.891 Personal history of nicotine dependence
CPT/HCPCS: 36415; 36600; 71045; 71275; 76775; 80048; 80053; 80074; 80076; 81001; 82375; 82550; 82565; 82728; 82805; 83050; 83605; 83615; 83735; 83880; 84460; 84484; 84702; 85025; 85027; 86140; 87070; 87205; 87449; 87899; 93005; 94618; 94640; 94668; 96365; 96375; 99285; A9270; J0131; J1100; J1650; J1956; J7040; Q9967

== ENCOUNTER 2020-01-22 13:48 | Outpatient (CLI) | payer OTHER, MEDICAID, SELFPAY ==
[2020-01-22 15:20] LABS: Alanine Aminotransferase 24 U/L (4-35); Albumin Level 3.6 g/dL (3.5-5.1); Alkaline Phosphatase 55 U/L (38-126); Anion Gap 4 mmol/L (8-16); Aspartate Amino Transferase 22 U/L (14-36); Bilirubin,Total 0.6 mg/dL (0.2-1.3); Blood Urea Nitrogen 14 mg/dL (7-17); Calcium 9.5 mg/dL (8.4-10.2); Carbon Dioxide 29 mmol/L (22-30); Chloride 101 mmol/L (98-107); Estimated Glomerular Filt Rate > 60; Glucose 119 mg/dL (65-105); Potassium 4.1 mmol/L (3.4-5.0); Sodium 134 mmol/L (137-145)
== END 2020-01-22 13:49 | disposition home or self-care (01) ==
PROVIDERS: Visit Provider Physician Assistant
DX: R74.01 Elevation of levels of liver transaminase levels (principal)
CPT/HCPCS: 36415; 80053

== ENCOUNTER → 2020-03-25 08:05 | Outpatient (CLI) | payer BC, MEDICAID, SELFPAY ==
--- NOTE | ~2020-03-25 | MR_ITS ---
EXAMINATION: MR abdomen wo/w con DATE: 03/25/2020 08:53 INDICATION: Acquired cyst of kidney. TECHNIQUE: Magnetic resonance imaging (MRI) of the abdomen was performed without and with 15 mL Multi Jaleel intravenous contrast. Sequences included coronal T2-weighted FS FSE, coronal and axial FIESTA F S, coronal LAVA-flex, axial LAVA, axial T2-weighted FSE, axial T1-weighted dual-echo FSPGR, axial STI R FSE, and axial DWI. Postcontrast sequences included coronal LAVA-flex and a time course of axial LA VA. COMPARISON: Ultrasound 01/10/2020, CT abdomen 01/10/2020 FINDINGS: There is diffuse hepatic steatosis. There is a 5 mm cyst in the spleen. The gallbladder, pancreas, an d adrenal glands are normal. There are hemorrhagic cysts in the kidneys measuring up to 2.6 cm on the left. There are simple cysts in the kidneys measuring up to 2.0 cm on the left. There are no dilated loops of bowel. There are no pathologically enlarged lymph nodes. There is no free intraperitoneal f luid. IMPRESSION: 1. Benign cysts in the kidneys. Reviewed, dictated and finalized at location A. ICAL SERVICES ASST
[2020-03-25 08:31] LABS: Estimated Glomerular Filt Rate > 60
== END ==
PROVIDERS: PCP Internal Medicine; Visit Provider Internal Medicine
DX: N28.1 Cyst of kidney, acquired (principal)
CPT/HCPCS: 74183; A9577

== ENCOUNTER 2020-04-05 09:57 | Outpatient (CLI) | payer BC, MEDICAID, SELFPAY ==
[2020-04-05 10:47] LABS: Hemoglobin A1C 5.9 % (<5.7)
[2020-04-05 11:15] LABS: Cholesterol 207 mg/dL (0-200); HDL Direct 30 mg/dL (40-60); LDL Cholesterol Calculated 128 mg/dL (<130); LDL Cholesterol Direct 128 mg/dL (0-130); Triglycerides 247 mg/dL (0-150)
== END 2020-04-05 09:58 | disposition home or self-care (01) ==
PROVIDERS: PCP Internal Medicine; Visit Provider Internal Medicine
DX: K76.0 Fatty (change of) liver, not elsewhere classified (principal); R06.02 Shortness of breath
CPT/HCPCS: 36415; 80061; 83036; 83721

== ENCOUNTER 2020-12-26 11:32 | Outpatient (CLI) | payer BC, OTHER, MEDICAID, SELFPAY ==
[2020-12-26 12:52] LABS: Anion Gap 12 mmol/L (8-16); Blood Urea Nitrogen 13 mg/dL (7-18); Calcium 8.8 mg/dL (8.5-10.1); Carbon Dioxide 22 mmol/L (21-32); Chloride 105 mmol/L (98-108); Cholesterol 203 mg/dL (0-200); Estimated Glomerular Filt Rate > 60; Glucose 106 mg/dL (70-99); HDL Direct 43 mg/dL (40-60); LDL Cholesterol Calculated 135 mg/dL (<130); Osmolality Calculated 288 mOsm/kg (285-295); Potassium 4.2 mmol/L (3.5-5.1); Sodium 139 mmol/L (136-145); Triglycerides 126 mg/dL (0-150)
== END 2020-12-26 11:33 | disposition home or self-care (01) ==
LOC: CHSLAB 11:39
PROVIDERS: PCP Nurse Practitioner
DX: R06.00 Dyspnea, unspecified (principal); I27.20 Pulmonary hypertension, unspecified; R06.02 Shortness of breath
CPT/HCPCS: 36415; 80048; 80061

== ENCOUNTER 2021-01-13 14:14 | Outpatient (CLI) | payer BC, OTHER, MEDICAID, SELFPAY ==
--- NOTE | ~2021-01-13 | CT_ITS ---
EXAMINATION: CT sinus wo con DATE: 01/13/2021 14:47 INDICATION: Chronic sinusitis. TECHNIQUE: Computed tomography (CT) of the paranasal sinuses was performed without intravenous contra st. The dose-length product was 268.17 mGy-cm. Automated exposure control and iterative reconstructio n technique were employed. COMPARISON: None FINDINGS: There is mucosal thickening of the maxillary, sphenoid and ethmoid sinuses. Frontal sinuses are not well-developed. Mastoids are pneumatized. Leftward nasal septal deviation. Ostiomeatal units are occluded by soft tissue. No significant mucoperiosteal reaction. IMPRESSION: 1. Moderate sinusitis. 2: Leftward nasal septal deviation. Reviewed, dictated and finalized at location A. GROUNDS CHECKER
== END 2021-01-13 14:15 | disposition home or self-care (01) ==
LOC: CHSIMG 14:16
PROVIDERS: PCP Nurse Practitioner Psychiatric/Mental Health; Visit Provider Nurse Practitioner Family
DX: J32.9 Chronic sinusitis, unspecified (principal)
CPT/HCPCS: 70486

== ENCOUNTER 2021-02-07 11:49 | Outpatient (CLI) | payer BC, MEDICAID, SELFPAY | END 2021-02-07 11:50 | disposition home or self-care (01) | LOC: CHSLAB 11:51 | PROVIDERS: PCP Nurse Practitioner; Visit Provider Internal Medicine Hematology & Oncology | DX: E83.19 Other disorders of iron metabolism (principal) | CPT/HCPCS: 36415; 81256 ==

== ENCOUNTER 2021-02-09 12:41 | Outpatient (CLI) | payer BC, MEDICAID, SELFPAY ==
[2021-02-09 15:04] LABS: Ferritin 9 ng/mL (8-252)
== END 2021-02-09 12:42 | disposition home or self-care (01) ==
LOC: CHSLAB 12:44
PROVIDERS: PCP Nurse Practitioner; Visit Provider Internal Medicine Hematology & Oncology
DX: E83.19 Other disorders of iron metabolism (principal)
CPT/HCPCS: 36415; 82728

== ENCOUNTER 2021-03-07 17:45 | Emergency (ER) | payer BC, MEDICAID, SELFPAY ==
[2021-03-07] VITALS (7 sets, daily range): BP systolic 120–136; BP diastolic 63–88; PULSE 85–97; RESP 16–20; TEMP 36.5–37.4; O2SAT 97–98
--- NOTE | ~2021-03-07 | XR_ITS ---
EXAMINATION: XR chest 1V portable INDICATION: Shortness of breath and wheezing, COVID 19 positive TECHNIQUE: Portable AP chest at 2122 hours COMPARISON: 01/09/2020 FINDINGS: The lungs are free of acute opacities. There is no pleural effusion or pneumothorax. The ca rdiomediastinal silhouette is normal. There is mild osteoarthritis of the shoulders. IMPRESSION: 1. No acute cardiopulmonary abnormality. Reviewed, dictated and finalized at location F. UTIVE COMMUNICATIONS MANAGER
--- NOTE | 2021-03-07 18:36 | ECG_ITS ---
Measurements Intervals Tell Rate: 89 P: 29 WA: 118 QRS: 55 QRSD: 84 T: -6 QT: 357 QTc: 436 Interpretive Statements SINUS RHYTHM WITH SHORT WA INTERVAL MINIMAL Q WAVES- INFERIOR LEADS NONSPECIFIC ST & T-WAVE ABNORMALITY- ANTEROLAT/INF LEADS BORDERLINE ECG Electronically Signed On 03-08-2021 14:03:54 CYCLING INSTRUCTOR by Pete Thompson D.O.
[2021-03-07] MEDS: methylPREDNISolone SOD SUCC 125 MG VIAL IV PUSH (18:49)
[2021-03-07 19:19] LABS: Alveolar/Arterial O2 Gradient 34.7 mmHg; Base Excess ABG -1.1 mmol/L (0-2); Fractional Inspired Oxygen 21 %; HCO3 ABG 22.2 mmol/L (23-29); Oxygen Content ABG 13.9 %vol (16.0-22.0); Oxygen Saturation ABG 94.9 % (95-97); Oxyhemoglobin 94.5 % (94-100); PCO2 ABG 31.8 mmHg (35-45); PO2 FiO2 Ratio Arterial Blood 3.67 %; Total Hemoglobin 10.4 g/dL (12.0-18.0); pH ABG 7.46 (7.35-7.45)
[2021-03-07 19:25] LABS: Hematocrit 31.7 % (35.0-49.0); Hemoglobin 9.8 g/dL (12.0-15.0); Mean Corpuscular HGB Conc 30.9 g/dL (32.0-36.0); Mean Corpuscular Hemoglobin 25.1 pg (27.0-31.0); Mean Corpuscular Volume 81.3 fL (78.0-102.0); Mean Platelet Volume 10.1 fl (9.2-11.8); Platelet Count Result 290 K/mm3 (150-420); Red Cell Distribution Width 16.3 % (11.6-14.4)
[2021-03-07 19:29] LABS: Device ROOM AIR; Modified Allen's Test Pass; Site Drawn LEFT RADIAL
[2021-03-07 19:39] LABS: Alanine Aminotransferase 39 U/L (14-59); Albumin Level 3.7 g/dL (3.4-5.0); Alkaline Phosphatase 65 U/L (46-116); Anion Gap 13 mmol/L (8-16); Aspartate Amino Transferase 24 U/L (15-37); Bilirubin,Total 0.3 mg/dL (0.00-1.00); Blood Urea Nitrogen 8 mg/dL (7-18); Calcium 8.8 mg/dL (8.5-10.1); Carbon Dioxide 24 mmol/L (21-32); Chloride 102 mmol/L (98-108); Estimated CRCL calculation 65 ml/min; Estimated Glomerular Filt Rate 59; Glucose 97 mg/dL (70-99); NT Pro B Type Natriuretic Pept 200 pg/mL (0-125); Osmolality Calculated 286 mOsm/kg (285-295); Potassium 3.8 mmol/L (3.5-5.1); Sodium 139 mmol/L (136-145); Total Protein 7.4 g/dL (6.4-8.2); Troponin I 6.2 ng/L (0.00-60.4)
[2021-03-07 19:45] LABS: SARS-CoV-2 Ag Positive (Negative)
[2021-03-07 19:57] LABS: Band Neutrophils Percent 0 % (0-6); Lymphocytes Absolute Manual 1.61 K/mm3 (1.1-4.5); Lymphocytes Percent Manual 23 % (18-44); Neutrophils Absolute Manual 4.13 K/mm3 (1.7-7.2); Neutrophils Percent Manual 59 % (46-73); Total Cells Counted 100
[2021-03-07 19:58] LABS: Basophils Percent Manual 0 % (0-1); Eosinophils Percent Manual 0 % (1-6); Monocytes Absolute Manual 1.26 K/mm3 (0.1-0.90); Monocytes Percent Manual 18 % (3-9); Platelet Estimate Adequate (Adequate)
--- NOTE | 2021-03-07 21:48 | ED.SOB ---
HPI - SOB/Dyspnea General Chief Complaint: Shortness of Breath/Dyspnea Stated Complaint: trouble breathing,body aches Time Seen by Provider: 03/07/21 17:47 Source: patient, RN notes reviewed and old records reviewed Mode of arrival: ambulatory Limitations: no limitations History of Present Illness MD elicited complaint: shortness of breath and cough Pertinent past history: COPD Onset (ago): day(s) (1) Timing: constant Severity: moderate Exacerbating factors: nothing Relieving factors: nothing Known history of: COPD Associated symptoms: cough and chest congestion Treatment prior to arrival: bronchodilator Related Data Home Medications Medication Instructions Recorded Confirmed Zyrtec 10 mg PO DAILY 01/09/20 03/07/21 metoprolol succinate 50 mg PO DAILY 01/09/20 03/07/21 Allergies Allergy/AdvReac Type Severity Reaction Status Date / Time amitriptyline Allergy Rash Verified 03/07/21 18:11 codeine Allergy Nausea and Verified 03/07/21 18:11 Vomiting hydromorphone [From Dilaudid] Allergy Vomiting Verified 03/07/21 18:11 meperidine [From Demerol] Allergy Vomiting Verified 03/07/21 18:11 Review of Systems Review of Systems: All systems reviewed & are unremarkable except as noted in HPI and below Respiratory: Respiratory: Reports cough, Reports dyspnea and Reports wheezing PMFSH Past Medical History Medical History Bronchitis due to COVID-19 virus COPD exacerbation History of emphysema History of hypertension Surgical History Surgical History History of carpal tunnel release History of section Family History Family History Grandparent Colon cancer Diabetes mellitus Grandparent Throat cancer Grandparent Heart abnormality Father Hypertension Mother Alcoholism COPD (chronic obstructive pulmonary disease) Heart attack Social History Social History Smoking packs per day: 1 Smoking cigarettes per day: 20.0 Years smoked: 25 Smoking pack-years: 25.00 Smoking status: Former smoker Alcohol intake: former Substance use: never Gender identity (if verbalized by the patient): Female Spiritual care concerns: No Exam Const: General: no acute distress and alert Orientation/consciousness: patient oriented x3 Limitations: no limitations HENMT: Ears: external ears normal and TM's normal bilaterally General nose exam: Normal external nose present and Normal nares present Face and sinus: normal facial exam Mouth: Yes moist mucous membranes Eyes: Conjunctivae: conjunctivae normal Pupils: Equal, round and reactive pupils present EOM: EOMs intact bilaterally Neck: Neck: normal visual inspection and no lymphadenopathy Chest: Chest palpation & inspection: normal inspection of the chest Resp: Effort & Inspection: uses accessory muscles Auscultation: rhonchi and wheezes Cardio: Rate: regular rate Rhythm: regular rhythm GI: GI Palp: Yes Soft to palpation and No Tenderness to palpation present (GI) : General: Yes bladder normal to palpation and Yes no CVA tenderness Back/Spine/Pelvis: Back: no CVA tenderness Skin: General skin exam: normal color Rashes: no rashes Neuro: General: patient oriented x3, moves all extremities, no meningeal signs, no focal motor deficits and CN's II-XI intact bilaterally Extrem: General: normal to inspection and no pedal edema Psych: Mental Status: mental status grossly normal Affect: normal affect Attitude: cooperative Thought content: Yes Normal thought content present Course Course Emergency Course: Pt improved with MDIs and was sinificantly better in the ED. Reevaluation(s) Date: 03/07/21 Time: 18:45 Vital Signs Vital signs: Vital Signs Temperature 37.4 C 03/07/21 18:08 Pulse Rate 97
[2021-03-07] MEDS: ALBUTEROL SULFATE (*SP) INHALER 4 PUFF INHALATION (22:23)
[2021-03-07] MEDS: UMECLIDINIUM BROMIDE 62.5 MCG ELLIPTA 1 PUFF INHALATION (22:24)
--- NOTE | 2021-03-08 17:31 | PC.NURSE ---
Pt called with issue on prescriptions. Had scripts changed to [facility] in [place] and Demi did not have prescription for azithromycin. Called prescription in to [facility] in [place]. Pt notified.
== END 2021-03-07 22:34 | disposition home or self-care (01) ==
PROVIDERS: Emergency Provider Emergency Medicine
DX: J44.1 Chronic obstructive pulmonary disease with (acute) exacerbation (principal); U07.1 COVID-19; J40 Bronchitis, not specified as acute or chronic
CPT/HCPCS: 36415; 36600; 71045; 80053; 82805; 83880; 84484; 85025; 87426; 93005; 94640; 96374; 99283; 99284; A9270; C9803; J2930

== ENCOUNTER 2021-07-24 11:37 | Outpatient (CLI) | payer BC, MEDICAID, SELFPAY ==
--- NOTE | ~2021-07-24 | CT_ITS ---
EXAMINATION: CTA chest PE protocol DATE: 07/24/2021 12:23 INDICATION: Dyspnea, unspecified. TECHNIQUE: Computed tomography angiography (CTA) of the chest was performed with 100 mL Omnipaque-350 intravenous contrast timed to evaluate the pulmonary arteries. Coronal maximum intensity projection 3D-reconstructions were created by the technologist. Automated exposure control and iterative reconst ruction technique were employed. The dose-length product was 573.65 mGy-cm. COMPARISON: Chest CT 01/10/2020 FINDINGS: There is mild emphysema. There is mild atelectasis bilaterally. No pleural effusion. There is an aberrant right subclavian artery. The heart size is normal. No pericardial effusion. There is d iffuse hepatic steatosis. There is a 2.3 cm cyst in left kidney. There is no pulmonary embolus. There is mild thoracic spondylosis. IMPRESSION: 1. No pulmonary embolus. 2. Mild emphysema. Reviewed, dictated and finalized at location A.
[2021-07-24 12:15] LABS: Estimated Glomerular Filt Rate > 60
== END 2021-07-24 11:38 | disposition home or self-care (01) ==
PROVIDERS: PCP Nurse Practitioner; Visit Provider Internal Medicine Pulmonary Disease
DX: R06.00 Dyspnea, unspecified (principal); R06.02 Shortness of breath; J43.9 Emphysema, unspecified
CPT/HCPCS: 71275; Q9967

== ENCOUNTER 2021-08-08 10:09 | Outpatient (RCR) | payer BC, SELFPAY ==
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
--- NOTE | 2021-09-02 17:11 | PCOTNOTE ---
Patient is seen for OT evaluation only. Patient did not attempt to schedule additional OT sessions at this time. See evaluation for skills and concerns. Discharge skilled OT services. [place]
== END 2021-08-08 11:02 | disposition home or self-care (01) ==
LOC: CHSOT 10:09
PROVIDERS: Visit Provider Orthopaedic Surgery
DX: M25.531 Pain in right wrist (principal)
CPT/HCPCS: 97014; 97110; 97165; G0283

== ENCOUNTER 2021-09-06 12:58 | Emergency (ER) | payer BC, MEDICAID, SELFPAY ==
--- NOTE | ~2021-09-06 | XR_ITS ---
EXAM: XR ankle RT min 3V DATE: 09/06/2021 14:26 HISTORY: ankle pain all over x 1 day, NKI . COMPARISON: 07/23/2011. FINDINGS: Normal mineralization. No fracture or dislocation. No lytic or blastic lesion. Degenerativ e change at the tibiotalar joint. Possible old lateral talar process and medial malleolus avulsion fr actures. Achilles and plantar enthesopathy. No erosion or periosteal change. Soft tissues within norm al limits. IMPRESSION: No acute osseous finding in the right ankle. Reviewed, dictated and finalized at location K.
[2021-09-06 13:05] VITALS: BP 161/74; PULSE 89; RESP 18; TEMP 36.4; O2SAT 96
--- NOTE | 2021-09-06 13:14 | ED.LOWEXIN ---
HPI - Extremity Injury (Lower) General Chief Complaint: Extremity Injury, Lower Stated Complaint: R ankle/leg pain Time Seen by Provider: 09/06/21 13:14 Source: patient History of Present Illness HPI Narrative: 50-year-old female with a history of hypertension, depression, left renal cysts, COPD/emphysema, COVID pneumonia, negative cardiac catheterization presented to the ER with -- right ankle pain. No swelling. No history of trauma. Type of Injury: other ( No known trauma) Relieving factors: nothing Exacerbating factors: nothing Related Data Home Medications Medication Instructions Recorded Confirmed cetirizine 10 mg capsule (Zyrtec) 10 mg PO DAILY 01/09/20 09/06/21 metoprolol succinate 50 mg 50 mg PO DAILY 01/09/20 09/06/21 tablet,extended release 24 hr Allergies Allergy/AdvReac Type Severity Reaction Status Date / Time amitriptyline Allergy Rash Verified 09/06/21 13:15 codeine Allergy Nausea and Verified 09/06/21 13:15 Vomiting hydromorphone [From Dilaudid] Allergy Vomiting Verified 09/06/21 13:15 meperidine [From Demerol] Allergy Vomiting Verified 09/06/21 13:15 Review of Systems Review of Systems: All systems reviewed & are unremarkable except as noted in HPI and below Constitutional: Constitutional: Reports as per HPI and Reports no additional constitutional complaints Eyes: Eyes: Reports as per HPI and Reports no additional eye complaints ENT: Reports system reviewed and no additional complaints, except as documented and Reports as per HPI Cardiovascular: Cardiovascular: Reports as per HPI and Reports no additional cardiovascular complaints Respiratory: Respiratory: Reports as per HPI and Reports no additional respiratory complaints Gastrointestinal: Gastrointestinal: Reports as per HPI and Reports no additional gastrointestinal complaints Genitourinary: Genitourinary: Reports no additional female genitourinary complaints and Reports as per HPI Musculoskeletal: Musculoskeletal: Reports no additional musculoskeletal complaints and Reports as per HPI Comments: right ankle pain Integumentary/Breasts: Skin/Breast: Reports system reviewed and no additional complaints, except as docu and Reports as per HPI Neurologic: Reports system reviewed and no additional complaints, except as documented and Reports as per HPI Psychiatric: Psychiatric: Reports no additional psychiatric complaints and Reports as per HPI Endocrine: Endocrine: Reports no additional endocrine complaints and Reports as per HPI Hematologic/Lymphatic: Hematologic/Lymphatic: Reports no additional hematologic/lymphatic complaints and Reports as per HPI Allergic/Immunologic: Allergic/Immunologic: Reports no additional allergic/immunologic complaints and Reports as per HPI PMFSH Past Medical History Medical History Bronchitis due to COVID-19 virus COPD exacerbation History of emphysema History of hypertension Surgical History Surgical History History of carpal tunnel release History of section Family History Family History Grandparent Colon cancer Diabetes mellitus Grandparent Throat cancer Grandparent Heart abnormality Father Hypertension Mother Alcoholism COPD (chronic obstructive pulmonary disease) Heart attack Social History Social History Smoking packs per day: 1 Smoking cigarettes per day: 20.0 Years smoked: 25 Smoking pack-years: 25.00 Smoking status: Former smoker Alcohol intake: former Substance use: never Gender identity (if verbalized by the patient): Female Spiritual care concerns: No Exam Const: General: healthy appearing and no acute distress Nutritional Appearance: well nourished and obese Orientation/consciousness: patient orient
[2021-09-06 15:00] VITALS: BP 150/81; PULSE 78; RESP 16; TEMP 36.2; O2SAT 98
[2021-09-06] MEDS: KETOROLAC 30 MG/ML VIAL (*BKC) IM (15:18)
== END 2021-09-06 15:25 | disposition home or self-care (01) ==
PROVIDERS: Emergency Provider Internal Medicine Critical Care Medicine; PCP Nurse Practitioner
DX: M25.571 Pain in right ankle and joints of right foot (principal); I10 Essential (primary) hypertension; J44.9 Chronic obstructive pulmonary disease, unspecified; F32.A Depression, unspecified; Z87.891 Personal history of nicotine dependence
CPT/HCPCS: 73610; 96372; 99283; J1885

== ENCOUNTER 2021-10-14 12:26 | Outpatient (CLI) | payer BC, MEDICAID, SELFPAY ==
[2021-10-14 13:00] VITALS: PULSE 77; O2SAT 98
[2021-10-14 13:05] VITALS: PULSE 94; O2SAT 96
[2021-10-14 13:15] VITALS: PULSE 72; O2SAT 98
--- NOTE | 2021-10-14 14:56 | HOMEO2EVAL ---
Evaluation was performed at [facility] Home Oxygen Evaluation RC: Home Oxygen (O2) Evaluation Start: 10/14/21 14:55 Freq: Status: Active Protocol: RPE Activity Type Activity Date Activity User E-sign Co-sign Detail Recorded Client Recorded Date Recorded By Document 10/14/21 13:00 KLA [id number] 10/14/21 14:56 KLA Document 10/14/21 13:05 KLA [id number] 10/14/21 14:56 KLA Document 10/14/21 13:15 KLA [id number] 10/14/21 14:56 KLA 10/14/21 10/14/21 10/14/21 13:00 13:05 13:15 Home O2 Evaluation Test Phase Resting Exercise Resting Oxygen Delivery Room Air Room Air Room Air Pulse Oximetry (90-100 %) 98 96 98 Pulse Rate (60-100 beats/min) 77 94 72 Ambulation Distance (feet) 800 Ambulation Distance (meters) 243.82 Treatment Charges O2 Evaluation - Outpatient
--- NOTE | 2021-10-14 14:57 | PCRCNOTE ---
HOME O2 EVAL COMPLETED AND FAXED TO OFFICE STAFF. NO HOME O2 NEEDED AT THIS TIME
--- NOTE | 2021-10-15 13:11 | WPDPFTINT ---
PFT Procedure Performed PFT Procedure Performed Spirometry with Pre/Post Bronchodilator Plethysmography (Lung Vol) Diffusing Cap (DLCO) Flow Vol Loop PFT Interpretation This is a pulmonary function test with pre and post-bronchodilator spirometry, plethysmography and diffusing capacity. The test was performed and results interpreted in accordance with the 2019 and 2005 ATS/ERS Task Force guidelines respectively using the Global Lung Function Initiative-2012 reference equations. Patient demonstrated good effort and cooperation. Reproducibility criteria were met. The quality of the pre bronchodilator spirometry maneuver was Grade A and post bronchodilator spirometry maneuver was Grade A. Findings: Spirometry: The contour the inspiratory and expiratory flow tracing are normal. The pre bronchodilator FVC is 2.87 L, 85% predicted. The pre bronchodilator FEV1 is 2.06 L, 76% predicted. The pre bronchodilator FEV1: FVC ratio 72%. The post bronchodilator FVC is 2.85 L, representing 1% decrease. The post bronchodilator FEV1 is 2.17 L, representing a 6% increase. The post bronchodilator FEV1: FVC ratio is 76%. Plethysmography: The total lung capacity is 4.51 L, 92% predicted. The functional residual capacity is 2.34 L, 86% predicted. The residual volume is 1.64 L, 97% predicted. Diffusing capacity: The diffusion capacity unadjusted for hemoglobin and carboxyhemoglobin is 15.9, 71% predicted. The diffusing capacity adjusted for alveolar volume is 4.18, 89% predicted. Impression: The spirometry is normal without evidence of an obstructive abnormality. The lung volumes are normal without evidence of and restrictive abnormality. The FEV1 is mildly decreased without an obstructive or restrictive abnormality. This is an abnormal but nonspecific finding. There is no significant improvement after inhaling a single dose of albuterol. The diffusing capacity unadjusted for hemoglobin and carboxyhemoglobin is mildly decreased and normalizes when adjusted for alveolar volume. There are no prior studies for comparison
== END 2021-10-14 12:27 | disposition home or self-care (01) ==
PROVIDERS: PCP Nurse Practitioner; Visit Provider Internal Medicine Pulmonary Disease
DX: R06.00 Dyspnea, unspecified (principal)
CPT/HCPCS: 94060; 94618; 94726; 94729

== ENCOUNTER 2023-04-22 09:28 | Outpatient (CLI) | payer OTHER, MEDICAID, SELFPAY ==
--- NOTE | 2023-05-13 17:00 | WPDHOMESLEEP ---
Sleep Study - Home Unattended Date of Study: 04/22/23 Ordering Provider: Jimi Alexander MD Interpreting Provider: Miroslava Browne, DO Home Sleep Study Type: Watch PAT Height: 1.6 m Weight: 89.811 kg Body Mass Index: 35.0 Neck Circumference (inches): 17 Orient: 3 Reason for Sleep Study Daytime hypersomnia Sleep History The patient is a 52 year old female with hypertension, heart disease, anxiety, depression, seasonal allergies, anemia and obesity that had a sleep study lidar scientist for evaluation of sleep apnea. She rarely awakens from sleep short of breath. She denies awakening at night with heartburn, belching or cough. She frequently snores but it is never loud enough others complain. She occasionally has trouble sleeping when she has a cold. She denies waking up gasping for air throughout the night. She denies having breathing problems at night observed by herself or others. She frequently sweats excessively at night. She constantly notices her heart pounding or beating irregularly during the night. She denies falling asleep during the day and while driving. She denies sleep paralysis, cataplexy and hypnagogic / hypnopompic hallucinations. She denies having trouble at school or work due to sleepiness. She denies feeling afraid to sleep. He rarely has nightmares. She frequently remembers her dreams. She rarely has thoughts racing through. She constantly feels sad or depressed. She occasionally has anxiety. She constantly has muscular tension. She occasionally notices parts of her body jerk. She denies kicking during night. She occasionally has crawling and aching feelings in legs and frequently has leg pain during the night. She denies grinding her teeth during sleep and denies awakening with morning jaw pain. She is constantly bothered by pain during the day frequently awakened by pain during the night. She constantly wakes up feeling stiff in the morning. She rarely wakes up with sore or achy muscles. She constantly wakes up with pain in the neck, spine or other joints. She goes to bed at 11:30 p.m. on weekdays and between midnight to 12:30 a.m. on the weekends. She can fall asleep relatively quickly. She wakes up 2-4 times throughout the night to adjust her position and is able to fall back asleep immediately. She wakes up at 6:50 a.m. on weekdays and at 9:00 a.m. on the weekends she typically gets 6 of sleep per night. The amount of time she stays in bed after waking up in the morning is variable. She currently lives with her , 2 sons, [id number] and granddaughter. She denies consuming any caffeinated beverages within 2 hours of bedtime. She denies engaging in physical exercise before bedtime. She will watch television before falling asleep. She will occasionally take naps in afternoon or the evening and they refreshing. She consumes 2 cups of coffee per day. She quit smoking cigarettes 15 years ago. She consumes 2-3 beers per day. She denies recreational drug use. [facility] Past Medical History Medical History Bronchitis due to COVID-19 virus COPD exacerbation History of emphysema History of hypertension Surgical History Surgical History History of carpal tunnel release History of section Family History Family History Grandparent Colon cancer Diabetes mellitus Grandparent Throat cancer Grandparent Heart abnormality Father Hypertension Mother Alcoholism COPD (chronic obstructive pulmonary disease) Heart attack Social History Social History Smoking packs per day: 1 Smoking cigarettes per day: 20.0 Years smoked: 25 Smoking pack-years: 25.00 Smoking status: Former smoker Alcohol intake: former Substance use: never Gen
[2023-05-13 17:16] VITALS: BMI 35.0
== END 2023-04-27 07:30 | disposition home or self-care (01) ==
LOC: ANHCSM 09:30
PROVIDERS: Visit Provider Internal Medicine Pulmonary Disease
DX: G47.33 Obstructive sleep apnea (adult) (pediatric) (principal); I10 Essential (primary) hypertension
CPT/HCPCS: 95800

== ENCOUNTER 2023-07-28 09:00 | Outpatient (CLI) | payer OTHER, MEDICAID, SELFPAY ==
--- NOTE | ~2023-07-28 | MR_ITS ---
EXAMINATION: MR cervical spine wo con DATE: 07/28/2023 09:33 INDICATION: Spinal stenosis, cervical region. TECHNIQUE: Magnetic resonance imaging (MRI) of the cervical spine was performed without intravenous c ontrast. COMPARISON: None FINDINGS: Bone alignment is normal. Vertebral body heights and intervertebral disc heights are normal . The spinal cord signal intensity is normal. The following disc levels are specifically discussed: C2-C3: The disc does not extend beyond the endplate margin. There is mild left uncovertebral joint os teoarthritis. There is mild right and severe left facet joint osteoarthritis. There is mild left neur al foraminal stenosis. There is no central canal stenosis. C3-C4: The disc does not extend beyond the endplate margin. There is mild right and severe left uncov ertebral joint osteoarthritis. There is moderate right and severe left facet joint osteoarthritis. Th ere is severe left neural foraminal stenosis. There is no central canal stenosis. C4-C5: The disc does not extend beyond the endplate margin. There is mild bilateral uncovertebral sonido nt osteoarthritis. There is severe bilateral facet joint osteoarthritis. There is mild left neural fo raminal stenosis. There is no central canal stenosis. C5-C6: The disc does not extend beyond the endplate margin. There is mild bilateral uncovertebral sonido nt osteoarthritis. There is severe right and mild left facet joint osteoarthritis. There is mild righ t neural foraminal stenosis. There is no central canal stenosis. C6-C7: The disc does not extend beyond the endplate margin. There is no uncovertebral joint osteoarth ritis. There is severe right and and mild left facet joint osteoarthritis. There is mild right neural foraminal stenosis. There is no central canal stenosis. C7-T1: The disc does not extend beyond the endplate margin. There is no uncovertebral joint osteoarth ritis. There is mild right and moderate left facet joint osteoarthritis. There is mild left neural fo raminal stenosis. There is no central canal stenosis. IMPRESSION: 1. Severe left neural foraminal stenosis at C3-C4. Otherwise mild cervical spondylosis. Reviewed, dictated and finalized at location A. IMPRESSION: 1. Severe left neural foraminal stenosis at C3-C4. Otherwise mild cervical spon dylosis.
== END 2023-07-28 09:01 ==
LOC: MICIMG 09:02
PROVIDERS: PCP Orthopaedic Surgery; Visit Provider Orthopaedic Surgery
DX: M48.02 Spinal stenosis, cervical region (principal); M43.02 Spondylolysis, cervical region
CPT/HCPCS: 72141

== ENCOUNTER 2023-11-29 02:10 | Day surgery (SDC) | payer OTHER, MEDICAID, SELFPAY ==
[2023-11-24 10:32] VITALS: BMI 36.3
--- NOTE | 2023-11-24 10:42 | PC.NURSE ---
Addendum entered by Gregoria Gutierrez RN 11/24/23 11:10: PT INSTRUCTED TO CALL DR. SOTO ABOUT NEED TO STOP ASPIRIN Original Note: Report to the Outpatient Waiting Room, entrance under the [place] [facility] located off [facility], at time _0600_ on date _11/29/23_. Planned Procedure Time: _0730_.? Time changes happen often and if your time is changed the preop area will call you the afternoon before. - You and your visitor will be asked to self-screen and do not enter if you have any COVID symptoms. Please call surgeon if you need to reschedule. - A mask is optional within the hospital at this time. Patients may have clear liquids (water, carbonated beverages, clear teas, apple juice) until 3 hours prior to surgery with a maximum of 20 ounces. - No food from midnight until time of surgery and no smoking - Infants may have breast milk until 4 hours before surgery, infant formula 6 hours prior to surgery. - Children will be allowed to drink immediately following surgery.? If applicable, please bring a bottle or sippy cup to assist with drinking. Juice, water, soda, and popsicles are readily available.? For infants on formula, please bring formula the day of surgery.? Pacifiers are allowed. Take only the following medications with a SIP of water on the morning of surgery: __NIFEDIPINE, METOPROLOL, _ISOSORBIDE, PAIN MEDICATION, MUSCLE RELAXER IF NEEDED DO NOT STOP ANY OF YOUR OTHER PRESCRIPTION MEDICATIONS PRIOR TO SURGERY EXCEPT THE FOLLOWING Medications to discontinue per physician VITAMINS AND SUPPLIMENTS Date to take last dose 11/26/23 Please no make-up, nail wolof, hairspray, perfume, deodorant, or body powder the day of surgery.? No jewelry (including any body piercings) or valuables the day of surgery, leave them at home.? Please take a shower or bath the night before, or the morning of, surgery with an antibacterial soap.? Wear comfortable, loose fitting clothing.? Children are encouraged to wear pajamas. - Jewelry must be removed prior to entering the operating room.? Rings and piercings that are not removed may be cut off. - The hospital will not accept responsibility for valuables.? - Please leave all valuables, including medications, at home the day of surgery. If you are going home after surgery, a licensed milk tanker driver must drive you home.? - NO public transportation without another adult if you receive anesthesia. - We recommend that an adult stay with you for 24 hours following discharge. - We also recommend that you do not drive, make important decision, drink alcoholic beverages, or take any drugs that were not prescribed by your health care provider for at least 24 hours after your discharge time. For Pediatric surgeries, we recommend two adults accompany the child home. Follow any additional instructions given to you from your surgeon. Telephone instructions given to __PATIENT_and asked if any additional questions and then verbalized understanding. Patient advised to call surgeon office or pre surgery nurse liaison [phone] if any additional questions.
[2023-11-29 06:23] VITALS: BP 150/83; PULSE 84; RESP 16; TEMP 36.3; O2SAT 99
--- NOTE | 2023-11-29 06:30 | WPDANESEPPF ---
Anes - Initial Pre Proc Eval Procedure: Operation Date: 11/29/23 07:30 Proposed Procedures p Hysteroscopy Dilation and Curettage - Nivia Swan MD Date/Time: 11/29/23 06:30 Surgeon: Nivia Swan MD Pre Op Diagnosis: Abnormal Uterine Bleeding Patient Data Age: 52 Gender: F Height: 1.57 m Weight: 90 kg Allergies Allergy/AdvReac Type Severity Reaction Status Date / Time amitriptyline Allergy Rash Verified 11/24/23 10:24 codeine Allergy Nausea and Verified 11/24/23 10:24 Vomiting hydromorphone [From Dilaudid] Allergy Vomiting Verified 11/24/23 10: meperidine [From Demerol] Allergy Vomiting Verified 11/24/23 10: pregabalin Allergy LIMB Verified 11/24/23 11:03 SWELLING., RASH Home Medications Medication Instructions Recorded Confirmed Type metoprolol succinate 50 mg 50 mg PO DAILY 01/09/20 11/24/23 History tablet,extended release 24 hr isosorbide dinitrate 30 mg tablet 30 mg PO DAILY 09/08/22 11/24/23 History nifedipine 30 mg tablet,extended 30 mg PO DAILY 09/08/22 11/24/23 History release pantoprazole 40 mg tablet,delayed 40 mg PO DAILY 09/08/22 11/24/23 History release rosuvastatin 20 mg tablet 20 mg PO DAILY 09/08/22 11/24/23 History cyclobenzaprine 5 mg tablet 5 mg PO DAILY PRN MUSCLE SPASMS 10/20/22 11/24/23 History ferrous sulfate 325 mg (65 mg 325 mg PO EVERY OTHER DAY 10/20/22 11/24/23 History iron) tablet (iron) folic acid 1 mg tablet 1 mg PO DAILY 10/20/22 11/24/23 History tramadol 50 mg tablet 25 mg PO DAILY PRN Pain 10/20/22 11/24/23 History budesonide-formoterol HFA 160 2 puff inhalation Q12H #10.2 grams 02/17/23 11/24/23 Rx mcg-4.5 mcg/actuation aerosol inhaler vitamins-lipotropics tablet 2 tablet PO DAILY 06/22/23 11/24/23 History albuterol sulfate 90 mcg/actuation See Rx Instructions .Route 08/16/23 11/24/23 Rx aerosol inhaler .COMPLEX #9 grams diclofenac sodium 75 mg See Rx Instructions .Route 11/10/23 11/24/23 Rx tablet,delayed release .COMPLEX #60 tabs aspirin 81 mg capsule 81 mg PO DAILY 11/24/23 11/24/23 History milk thistle 150 mg capsule 150 mg PO DAILY 11/24/23 11/24/23 History Patient hx anesthesia problems: none Family hx anesthesia problems: none Results Review: All pre-operative results and documents have been reviewed as part of the pre-operative evaluation. [facility] Past Medical History Medical History (Updated 11/29/23 @ 06:30 by Rui Alonso MD) Abnormal skin growth Bronchitis due to COVID-19 virus COPD exacerbation History of ankylosing spondylitis History of emphysema History of hypertension Nerve damage of foot Obesity GAVINO (obstructive sleep apnea) Surgical History Surgical History History of arthroscopy of knee History of carpal tunnel release History of section History of eye surgery History of hand surgery Family History Family History Grandparent Colon cancer Diabetes mellitus Throat cancer Heart abnormality Father Hypertension Mother Alcoholism COPD (chronic obstructive pulmonary disease) Heart attack Pneumonia Sibling Hypertension Hyperlipidemia Social History Social History Smoking packs per day: 1 Smoking cigarettes per day: 20.0 Years smoked: 25 Smoking pack-years: 25.00 Smoking status: Former smoker Tobacco type: cigarettes Second hand tobacco smoke exposure: No Additional smoking assessment comments: QUIT 2007 Alcohol intake: current Drinks per week: 10 Alcohol use details: 3 beers per night Substance use: never Substance use type: does not use Do You Feel Safe in your Home?: Yes Lack of Transportation: YES Lack of Food: Never True Current Housing: I Have Housing Concerned About Future Housing: No Difficulty Paying Gas/Electric Bills:
[2023-11-29 07:03] LABS: BEDSIDEPREGUCG Negative (Negative)
[2023-11-29] MEDS: LACTATED RINGERS 1,000 ML 30 ML IV CONT (07:06)
[2023-11-29] MEDS: ACETAMINOPHEN 500 MG TABLET 1000 MG PO (07:06)
--- NOTE | 2023-11-29 07:31 | WPDHPUPDATE1 ---
History and Physical Update Update Date/Time: 11/29/23 07:31 History and Physical has been reviewed, including an updated exam of the patient. There are NO changes in the patient's condition. Risks, benefits, and alternatives have been discussed and questions answered. Patient agrees to proceed with procedure.
--- NOTE | 2023-11-29 07:31 | PM.HPGS ---
History of Present Illness History of Present Illness Consent: Risks, benefits, and alternatives have been discussed and questions answered. Patient agrees to proceed with procedure. Chief complaint: Abnormal Uterine Bleeding Narrative: Oanh Nelson is a 52 year old female with prolonged and heavy bleeding. Pelvic ultrasound shows a 3.9cm intramural fibroid and a heterogeneous endometrial stripe. It was recommended to further undergo workup with D&C hysteroscopy. Risks of infection, bleeding, and perforation are reviewed. Risks of anesthesia and fluid imbalance are also discussed. Patient voices understanding and agrees to proceed Review of Systems Review of Systems: not repeated day of surgery; patient states no changes in status [facility] Past Medical History Medical History (Updated 11/29/23 @ 07:35 by Nivia Swan MD) Anxiety History of ankylosing spondylitis History of depression History of emphysema History of hypertension Nerve damage of foot Obesity GAVINO (obstructive sleep apnea) Surgical History Surgical History (Updated 11/29/23 @ 07:34 by Nivia Swan MD) History of arthroscopy of knee History of bilateral tubal ligation History of carpal tunnel release History of section x4 History of eye surgery strabismus Family History Family History Grandparent Colon cancer Diabetes mellitus Throat cancer Heart abnormality Father Hypertension Mother Alcoholism COPD (chronic obstructive pulmonary disease) Heart attack Pneumonia Sibling Hypertension Hyperlipidemia Social History Social History Smoking packs per day: 1 Smoking cigarettes per day: 20.0 Years smoked: 25 Smoking pack-years: 25.00 Smoking status: Former smoker Tobacco type: cigarettes Second hand tobacco smoke exposure: No Additional smoking assessment comments: QUIT 2007 Alcohol intake: current Drinks per week: 10 Alcohol use details: 3 beers per night Substance use: never Substance use type: does not use Do You Feel Safe in your Home?: Yes Lack of Transportation: YES Lack of Food: Never True Current Housing: I Have Housing Concerned About Future Housing: No Difficulty Paying Gas/Electric Bills: YES Difficulty Paying for Meds: No Currently Unemployed: YES Education: Associate Degree Difficulty w/ Childcare or Family Care: No Living arrangements: with family Occupation/Education: unemployed Additional occupation/education comments: Disability Gender identity (if verbalized by the patient): Female Spiritual care concerns: No Meds Home Medications and Allergies Home Medications Medication Instructions Recorded Confirmed Type metoprolol succinate 50 mg 50 mg PO DAILY 01/09/20 11/29/23 History tablet,extended release 24 hr isosorbide dinitrate 30 mg tablet 30 mg PO DAILY 09/08/22 11/29/23 History nifedipine 30 mg tablet,extended 30 mg PO DAILY 09/08/22 11/29/23 History release pantoprazole 40 mg tablet,delayed 40 mg PO DAILY 09/08/22 11/24/23 History release rosuvastatin 20 mg tablet 20 mg PO DAILY 09/08/22 11/24/23 History cyclobenzaprine 5 mg tablet 5 mg PO DAILY PRN MUSCLE SPASMS 10/20/22 11/24/23 History ferrous sulfate 325 mg (65 mg 325 mg PO EVERY OTHER DAY 10/20/22 11/24/23 History iron) tablet (iron) folic acid 1 mg tablet 1 mg PO DAILY 10/20/22 11/24/23 History tramadol 50 mg tablet 25 mg PO DAILY PRN Pain 10/20/22 11/24/23 History budesonide-formoterol HFA 160 2 puff inhalation Q12H #10.2 grams 02/17/23 11/24/23 Rx mcg-4.5 mcg/actuation aerosol inhaler vitamins-lipotropics tablet 2 tablet PO DAILY 06/22/23 11/24/23 History albuterol sulfate 90 mcg/actuation See Rx Instructions .Route 08/16/23 11/24/23 Rx aerosol inhaler .COMPLEX #9 grams diclofenac sodium 75 mg See Rx Instructions .
--- NOTE | 2023-11-29 08:08 | W.PM.PROC2 ---
Procedure Note - Detailed Date of Procedure 11/29/23 Pre-op Diagnosis menorrhagia Post-op Diagnosis Same Procedure Performed D&C hysteroscopy Surgeon Nivia Swan MD Anesthesia MAC Findings uterus sounds to 9cm and appears generally thickened with no discrete lesions Description of Procedure The patient is taken to the operating room and placed under anesthesia in the dorsal lithotomy position. She was prepped and draped in the usual sterile fashion. [place] speculum was placed in the vagina and the cervix was grasped on the anterior lip with a tenaculum. The uterus is sounded to 9cm. The hysteroscope was placed and with no discrete lesions noted it is removed. The sharp OO curette was used to curette the endometrium until a good uterine cry was noted in all areas. All instruments were then removed. Sponge, needle, and instrument counts are correct per the staff. Patient was awakened from anesthesia and taken to recovery in stable condition. Estimated Blood Loss 5 Drains No Packing No Pathology Yes ( Endometrial curettings) Complications No immediate complications Condition Stable Disposition PACU
[2023-11-29 08:09] VITALS: BP 121/64; PULSE 74; RESP 14; O2SAT 94
[2023-11-29 08:35] VITALS: BP 126/52; PULSE 74
== END 2023-11-29 08:58 | disposition home or self-care (01) ==
PROVIDERS: Visit Provider Obstetrics & Gynecology Gynecology
PROC: 0U5B8ZZ Destruction of Endometrium, Via Natural or Artificial Opening Endoscopic (ICD-10-PCS; CPT 58563; principal; 2023-11-29 07:30)
DX: N92.0 Excessive and frequent menstruation with regular cycle (principal); I10 Essential (primary) hypertension; J43.9 Emphysema, unspecified; F41.9 Anxiety disorder, unspecified; F32.A Depression, unspecified; G47.33 Obstructive sleep apnea (adult) (pediatric); E66.9 Obesity, unspecified; Z68.35 Body mass index [BMI] 35.0-35.9, adult; Z79.891 Long term (current) use of opiate analgesic; Z79.51 Long term (current) use of inhaled steroids; Z79.82 Long term (current) use of aspirin; Z98.890 Other specified postprocedural states; Z87.891 Personal history of nicotine dependence; Z80.0 Family history of malignant neoplasm of digestive organs; Z80.1 Family history of malignant neoplasm of trachea, bronchus and lung; Z82.49 Family history of ischemic heart disease and other diseases of the circulatory system
CPT/HCPCS: 58558; 88305; A9270; J2003; J2704; J3010; J7030; J7120

== ENCOUNTER 2023-12-24 13:01 | Emergency (ER) | payer OTHER, MEDICAID, SELFPAY ==
[2023-12-24 13:02] VITALS: BP 140/64; PULSE 95; RESP 18; TEMP 36.6; O2SAT 100
--- NOTE | 2023-12-24 13:35 | ED_ITS ---
HPI - Female Genitourinary General Chief complaint: Vaginal Bleeding <Maggie Hidalgo PA-C - Last Filed: 12/24/23 18:44> Stated complaint: vaginal bleeding <Maggie Hidalgo PA-C - Last Filed: 12/24/23 18:44> Time Seen by Provider: 12/24/23 13:36 <Maggie Hidalgo PA-C - Last Filed: 12/24/23 18:44> Focused HPI: This is a 53 year old female that presents to the ER for abnormal uterine bleeding. Started bleeding 3 days ago. Is bleeding through a super plus tampon in less than an hour. Feels tired and nauseous. Reports vomiting. Reports lower abdominal pain. Has been having irregular cycles as she is in menopause. Has had evaluation for this by her WATCH REPAIR PERSON. Her business owner/engineer is Dr. Swan. Was suppsed to be started on control, but her pharmacy was out and she was unable to get it. Denies fever, dysuria. GENERAL: Well-appearing, well-nourished, and in no acute distress. HEAD: Normocephalic, atraumatic. CHEST: Clear to auscultation. ?No respiratory distress. HEART: Regular rate and rhythm.? NEURO: ?Alert and oriented x3. Patient screened in triage and initial orders placed.? ?Additional care and dis position to be based upon?diagnostic testing and treatment. <Maggie Hidalgo PA-C - Last Filed: 12/24/23 18:44> Related Data Home medications: Home Medications Medication Instructions Recorded Confirmed metoprolol succinate 50 mg 50 mg PO DAILY 01/09/20 12/13/23 tablet,extended release 24 hr isosorbide dinitrate 30 mg tablet 30 mg PO DAILY 09/08/22 12/13/23 nifedipine 30 mg tablet,extended 30 mg PO DAILY 09/08/22 12/13/23 release pantoprazole 40 mg tablet,delayed 40 mg PO DAILY 09/08/22 12/13/23 release rosuvastatin 20 mg tablet 20 mg PO DAILY 09/08/22 12/13/23 cyclobenzaprine 5 mg tablet 5 mg PO DAILY PRN MUSCLE SPASMS 10/20/22 12/13/23 ferrous sulfate 325 mg (65 mg 325 mg PO EVERY OTHER DAY 10/20/22 12/13/23 iron) tablet (iron) folic acid 1 mg tablet 1 mg PO DAILY 10/20/22 12/13/23 tramadol 50 mg tablet 25 mg PO DAILY PRN Pain 10/20/22 12/13/23 vitamins-lipotropics tablet 2 tablet PO DAILY 06/22/23 12/13/23 aspirin 81 mg capsule 81 mg PO DAILY 11/24/23 12/13/23 milk thistle 150 mg capsule 150 mg PO DAILY 11/24/23 12/13/23 cetirizine 10 mg tablet (Zyrtec) 20 mg PO DAILY 12/13/23 12/13/23 <Maggie Hidalgo PA-C - Last Filed: 12/24/23 18:44> Allergies/Adverse reactions: Allergies Allergy/AdvReac Type Severity Reaction Status Date / Time amitriptyline Allergy Rash Verified 12/13/23 12:57 pregabalin Allergy LIMB Verified 12/13/23 12:57 SWELLING., RASH codeine AdvReac Nausea and Verified 12/13/23 13:20 Vomiting hydromorphone [From Dilaudid] AdvReac Vomiting Verified 12/13/23 13:20 meperidine [From Demerol] AdvReac Vomiting Verified 12/13/23 13:20 <Maggie Hidalgo PA-C - Last Filed: 12/24/23 18:44> FORMERLY [facility], [facility] Past Medical History Medical History: Medical History (Updated 12/24/23 @ 17:16 by Maude Whiting MD) Anxiety History of ankylosing spondylitis History of depression History of emphysema History of hypertension Nerve damage of foot Obesity GAVINO (obstructive sleep apnea) <Maggie Hidalgo PA-C - Last Filed: 12/24/23 18:44> Surgical History Surgical History: Surgical History (Updated 11/29/23 @ 07:34 by Nivia Swan MD) History of arthroscopy of knee History of bilateral tubal ligation History of carpal tunnel release History of section x4 History of eye surgery strabismus <Maggie Hidalgo PA-C - Last Filed: 12/24/23 18:44> Family History Family History: Family History Grandparent Colon cancer Diabetes mellitus Throat cancer Heart abnormality Father Hypertension Mother Alcoholism COPD (chronic obstructive pulmonary disease) Heart attack Pneumonia Sibling Hypertension Hyperlipidemia <Maggie Hidalgo PA-C - Last Filed: 12/24/23 18:44> Social History Social History: Social History Smoking packs per day: 1 Smoking cigarettes per day: 20.0 Years smoked: 35 Smoking pack-years: 35.00 Smoking status: Former smoker Tobacco type: cigarettes Second hand tobacco smoke exposure: No Smoking end date: 12/13/07 Additional smoking assessment comments: QUIT 2007 Alcohol intake: current Drinks per week: 14 Alcohol use details: 3 beers per night Substance use: never Substance use type: does not use Do You Feel Safe in your Home?: Yes Lack of Transportation: YES Lack of Food: Never True Current Housing: I Have Housing Concerned About Future Housing: No Difficulty Paying Gas/Electric Bills: YES Difficulty Paying for Meds: No Currently Unemployed: YES Education: Associate Degree Difficulty w/ Childcare or Family Care: No Living arrangements: with family Occupation/Education: unemployed Additional occupation/education comments: Disability Gender identity (if verbalized by the patient): Female Spiritual care concerns: No <Maggie Hidalgo PA-C - Last Filed: 12/24/23 18:44> Exam Narrative: no focused exam performed by myself <Maude Whiting MD - Last Filed: 12/24/23 21:05> Course Vital Signs Vital signs: Vital Signs Temperature 97.8 F 12/24/23 13:02 Pulse Rate 95 12/24/23 13:02 Respiratory Rate 18 12/24/23 13:02 Blood Pressure 140/64 12/24/23 13:02 Pulse Oximetry 100 12/24/23 13:02 Oxygen Delivery Room Air 12/24/23 13:02 Temperature 97.8 F 12/24/23 13:02 Pulse Rate 95 12/24/23 13:02 Respiratory Rate 18 12/24/23 13:02 Blood Pressure 140/64 12/24/23 13:02 Pulse Oximetry 100 12/24/23 13:02 Oxygen Delivery Room Air 12/24/23 13:02 <Maggie Hidalgo PA-C - Last Filed: 12/24/23 18:44> Vital Signs Temperature 97.8 F 12/24/23 13:02 Pulse Rate 95 12/24/23 13:02 Respiratory Rate 18 12/24/23 13:02 Blood Pressure 140/64 12/24/23 13:02 Pulse Oximetry 100 12/24/23 13:02 Oxygen Delivery Room Air 12/24/23 13:02 Temperature 97.8 F 12/24/23 13:02 Pulse Rate 95 12/24/23 13:02 Respiratory Rate 18 12/24/23 13:02 Blood Pressure 140/64 12/24/23 13:02 Pulse Oximetry 100 12/24/23 13:02 Oxygen Delivery Room Air 12/24/23 13:02 <Maude Whiting MD - Last Filed: 12/24/23 21:05> MDM - Female Genitourinary MDM Narrative Medical decision making narrative: MSE performed in triage. Patient was roomed but, before I could evaluate her, she told the RN she had been waiting too long and wanted to leave. Patient therefore left before being assessed by me/completing treatment (i.e. eloped). <Maude Whiting MD - Last Filed: 12/24/23 21:05> Lab Data Result diagrams: 12/24/23 13:45 12/24/23 13:45 <Maggie Hidalgo PA-C - Last Filed: 12/24/23 18:44> Labs: Lab Results 12/24/23 Range/Units 13:45 WBC 10.4 H (4.5-10.0) K/mm3 RBC 3.38 L (4.2-5.4) M/mm3 Hgb 9.2 L D (12.0-15.0) g/dL Hct 29.5 L (37.0-47.0) % MCV 87.3 (80-100) fl MCH 27.2 (26-34) pg MCHC 31.2 L (32-36) g/dl RDW 14.2 (11.5-14.5) % Plt Count 244 (150-375) k/mm3 MPV 9.9 (7.4-10.4) fl Immature Gran % (Auto) 0.4 (0-0.5) % Neut % (Auto) 77.3 H (45.5-73.1) % Lymph % (Auto) 15.6 L (18.3-44.2) % Jess[place] % (Auto) 5.5 (2.6-8.5) % Eos % (Auto) 0.6 (0-4.4) % Baso % (Auto) 0.6 (0.2-1.2) % Lymph # (Auto) 1.62 (0.9-3.2) K/mm3 [place] # (Auto) 0.6 (0.1-0.6) K/mm3 Eos # (Auto) 0.1 (0-0.3) K/mm3 Baso # (Auto) 0.1 (0.0-0.1) K/mm3 Abs Immat Gran (auto) 0.04 H (0.00-0.031) K/mm3 Absolute Neuts (auto) 8.1 H (1.3-6.7) K/mm3 Absolute Nucleated RBC 0.000 (0.0-0.012) K/mm3 Nucleated RBC % 0.0 (0.0-0.2) % PT 14.2 (11.1-14.7) Seconds INR 1.1 APTT 25.7 (22.3-36.8) Seconds Sodium 136 L (137-145) mmol/L Potassium 4.1 (3.4-5.0) mmol/L Chloride 103 (98-107) mmol/L Carbon Dioxide 21 L (22-30) mmol/L Anion Gap 12 (4-12) mmol/L BUN 12 (7-17) mg/dL Creatinine 0.70 (0.7-1.0) mg/dL Estim Creat Clear Calc 85 ml/min Estimated GFR > 60 (59 - ) Glucose 121 H (65-110) mg/dL Calcium 9.4 (8.4-10.2) mg/dL Total Bilirubin 0.3 (0.2-1.3) mg/dL AST 40 H (14-36) U/L ALT 28 (6-35) U/L Alkaline Phosphatase 53 (38-126) U/L Total Protein 7.0 (6.3-8.2) g/dL Albumin 4.2 (3.5-5.1) g/dL <Maggie Hidalgo PA-C - Last Filed: 12/24/23 18:44> Lab Results 12/24/23 Range/Units 13:45 WBC 10.4 H (4.5-10.0) K/mm3 RBC 3.38 L (4.2-5.4) M/mm3 Hgb 9.2 L D (12.0-15.0) g/dL Hct 29.5 L (37.0-47.0) % MCV 87.3 (80-100) fl MCH 27.2 (26-34) pg MCHC 31.2 L (32-36) g/dl RDW 14.2 (11.5-14.5) % Plt Count 244 (150-375) k/mm3 MPV 9.9 (7.4-10.4) fl Immature Gran % (Auto) 0.4 (0-0.5) % Neut % (Auto) 77.3 H (45.5-73.1) % Lymph % (Auto) 15.6 L (18.3-44.2) % [place] % (Auto) 5.5 (2.6-8.5) % Eos % (Auto) 0.6 (0-4.4) % Baso % (Auto) 0.6 (0.2-1.2) % Lymph # (Auto) 1.62 (0.9-3.2) K/mm3 [place] # (Auto) 0.6 (0.1-0.6) K/mm3 Eos # (Auto) 0.1 (0-0.3) K/mm3 Baso # (Auto) 0.1 (0.0-0.1) K/mm3 Abs Immat Gran (auto) 0.04 H (0.00-0.031) K/mm3 Absolute Neuts (auto) 8.1 H (1.3-6.7) K/mm3 Absolute Nucleated RBC 0.000 (0.0-0.012) K/mm3 Nucleated RBC % 0.0 (0.0-0.2) % PT 14.2 (11.1-14.7) Seconds INR 1.1 APTT 25.7 (22.3-36.8) Seconds Sodium 136 L (137-145) mmol/L Potassium 4.1 (3.4-5.0) mmol/L Chloride 103 (98-107) mmol/L Carbon Dioxide 21 L (22-30) mmol/L Anion Gap 12 (4-12) mmol/L BUN 12 (7-17) mg/dL Creatinine 0.70 (0.7-1.0) mg/dL Estim Creat Clear Calc 85 ml/min Estimated GFR > 60 (59 - ) Glucose 121 H (65-110) mg/dL Calcium 9.4 (8.4-10.2) mg/dL Total Bilirubin 0.3 (0.2-1.3) mg/dL AST 40 H (14-36) U/L ALT 28 (6-35) U/L Alkaline Phosphatase 53 (38-126) U/L Total Protein 7.0 (6.3-8.2) g/dL Albumin 4.2 (3.5-5.1) g/dL <Maude Whiting MD - Last Filed: 12/24/23 21:05> Discharge Plan Discharge Clinical Impression: Abnormal vaginal bleeding <Maggie Hidalgo PA-C - Last Filed: 12/24/23 18:44> Patient Disposition: Elopement After Seen by Prov <Maggie Hidalgo PA-C - Last Filed: 12/24/23 18:44> Condition: Stable <Maggie Hidalgo PA-C - Last Filed: 12/24/23 18:44> Prescriptions: No Action tramadol 50 mg tablet 25 mg PO DAILY PRN (Reason: Pain) ferrous sulfate [iron] 325 mg (65 mg iron) tablet 325 mg PO EVERY OTHER DAY folic acid 1 mg tablet 1 mg PO DAILY cyclobenzaprine 5 mg tablet 5 mg PO DAILY PRN (Reason: MUSCLE SPASMS) vitamins-lipotropics Tablet 2 tablet PO DAILY nifedipine 30 mg tablet extended release 30 mg PO DAILY pantoprazole 40 mg tablet,delayed release (DR/EC) 40 mg PO DAILY isosorbide dinitrate 30 mg tablet 30 mg PO DAILY Rx Instructions: allow nitrate-free interval of 12-14 hrs per 24-hr period rosuvastatin 20 mg tablet 20 mg PO DAILY budesonide-formoterol 160-4.5 mcg/actuation HFA aerosol inhaler 2 puff inhalation Q12H Qty: 10.2 6RF metoprolol succinate 50 mg Tablet Extended Release 24 Hr 50 mg PO DAILY milk thistle 150 mg Capsule 150 mg PO DAILY Rx Instructions: give with meal/snack aspirin 81 mg Capsule 81 mg PO DAILY cetirizine [Zyrtec] 10 mg Tablet 20 mg PO DAILY albuterol sulfate 90 mcg/actuation HFA aerosol inhaler See Rx Instructions .ROUTE .COMPLEX Qty: 9 6RF Dose Instruction: INHALE 2 PUFFS BY MOUTH 4 TIMES DAILY NEEDED FOR SHORTNESS OF BREATH FOR WHEEZING Rx Instructions: INHALE 2 PUFFS BY MOUTH 4 TIMES DAILY NEEDED FOR SHORTNESS OF BREATH FOR WHEEZING diclofenac sodium 75 mg tablet,delayed release (DR/EC) See Rx Instructions .ROUTE .COMPLEX Qty: 60 1RF Dose Instruction: Take 1 tablet by mouth twice daily Rx Instructions: Take 1 tablet by mouth twice daily <Maggie Hidalgo PA-C - Last Filed: 12/24/23 18:44> Follow-up/Referrals: PHYSICIAN,CLERICAL ASSOCIATE [Non-Staff] - <Maggie Hidalgo PA-C - Last Filed: 12/24/23 18:44>
[2023-12-24 13:49] LABS: Basophils Absolute Auto 0.1 K/mm3 (0.0-0.1); Basophils Percent Auto 0.6 % (0.2-1.2); Eosinophils Absolute Auto 0.1 K/mm3 (0-0.3); Eosinophils Percent Auto 0.6 % (0-4.4); Hematocrit 29.5 % (37.0-47.0); Hemoglobin 9.2 g/dL (12.0-15.0); Immature Granulocyte Absolute 0.04 K/mm3 (0.00-0.031); Immature Granulocyte Percent A 0.4 % (0-0.5); Lymphocytes Absolute Auto 1.62 K/mm3 (0.9-3.2); Lymphocytes Percent Auto 15.6 % (18.3-44.2); Mean Corpuscular HGB Conc 31.2 g/dl (32-36); Mean Corpuscular Hemoglobin 27.2 pg (26-34); Mean Corpuscular Volume 87.3 fl (80-100); Mean Platelet Volume 9.9 fl (7.4-10.4); Monocytes Absolute Auto 0.6 K/mm3 (0.1-0.6); Monocytes Percent Auto 5.5 % (2.6-8.5); Neutrophils Absolute Auto 8.1 K/mm3 (1.3-6.7); Neutrophils Percent Auto 77.3 % (45.5-73.1); Platelet Count Result 244 k/mm3 (150-375); Red Blood Count 3.38 M/mm3 (4.2-5.4); Red Cell Distribution Width 14.2 % (11.5-14.5); White Blood Count 10.4 K/mm3 (4.5-10.0)
[2023-12-24 14:01] LABS: Alanine Aminotransferase 28 U/L (6-35); Albumin Level 4.2 g/dL (3.5-5.1); Alkaline Phosphatase 53 U/L (38-126); Anion Gap 12 mmol/L (4-12); Aspartate Amino Transferase 40 U/L (14-36); Bilirubin,Total 0.3 mg/dL (0.2-1.3); Blood Urea Nitrogen 12 mg/dL (7-17); Calcium 9.4 mg/dL (8.4-10.2); Carbon Dioxide 21 mmol/L (22-30); Chloride 103 mmol/L (98-107); Estimated CRCL calculation 85 ml/min; Estimated Glomerular Filt Rate > 60; Glucose 121 mg/dL (65-110); Potassium 4.1 mmol/L (3.4-5.0); Sodium 136 mmol/L (137-145)
[2023-12-24 14:05] LABS: INR 1.1; Partial Thromboplastin Time 25.7 Seconds (22.3-36.8); Prothrombin Time 14.2 Seconds (11.1-14.7)
--- NOTE | 2023-12-24 17:15 | PC.NURSE ---
Pt requesting to sign out. States I have been here since 1300 and nothing has been done Reinforced seen by PA with labs drawn. Encouraged pt to continue to wait for MD. Pt refusing. AMA document signed
== END 2023-12-24 17:19 | disposition left against medical advice (07) ==
PROVIDERS: Physician Assistant; Emergency Provider Student in an Organized Health Care Education/Training Program
DX: N93.9 Abnormal uterine and vaginal bleeding, unspecified (principal); J43.9 Emphysema, unspecified; I10 Essential (primary) hypertension; E66.9 Obesity, unspecified; Z68.36 Body mass index [BMI] 36.0-36.9, adult; G47.33 Obstructive sleep apnea (adult) (pediatric); F32.A Depression, unspecified; F41.9 Anxiety disorder, unspecified; Z79.82 Long term (current) use of aspirin; Z87.891 Personal history of nicotine dependence
CPT/HCPCS: 36415; 80053; 85025; 85610; 85730; 99283

== ENCOUNTER 2024-07-18 09:47 | Outpatient (CLI) | payer BC, OTHER, SELFPAY ==
--- OUTSIDE RECORDS SUMMARY | 2024-07-18 09:51 | XMS_ITS | Encounter Summary ---
Author Organization [facility] Address [address] [place] [address] Phone Care Team Providers Care Site Administrator Name Role Phone Tosha Clemente APRN, QUALITY ANALYST/TECHNICAL WRITER Primary Care Provider Rosa M Fowler APRN, NEGRITO Unavailable [phone] Reason for Visit * Reason Comments Medication Refill Encounter Details Date Type Department Care Team (Late st Contact Info) Description 09/07/2022 Refill Research [facility] - Pulmonology & Sleep Medicine [facility] [address] [place] [id number] Rosa M Fowler APRN, CNP [address] [address] Medication Refill Social History Tobacco Use Types Packs/Day Years Used Date Smoking Tobacco: Former Cigarettes Q uit: 02/23/2008 Smokeless Tobacco: Never Alcohol Use Standard Drinks/Week Comments Yes 0 (1 standard drink = 0.6 oz pur e alcohol) socially Sexually Active Control Partners Comments Not Currently Comments No Sex and Gender Information Value Date Recorded Sex Assigned at Not on file Legal Sex Female 12:01 AM CDT Gender Identity Not on file Sexual Orientation Not on file COVID-19 Exposure Response Date Recorded In the last 10 days, have yo u been in contact with someone who was confirmed or suspected to have Coronavirus/COVID-19? No / Unsure 09/04/2022 9:31 AM CDT documented as of this encounter Plan of Treatment Not on file documented as of this encounter Visit Diagnoses Not on filedocumented in this encounter Care Teams Site Administrator Relationship Specialty Start Date End Date Tosha Clemente APRN, QUALITY ANALYST/TECHNICAL WRITER [address] [address] PCP - General Advanced Practice Nurse 02/02/20 Rosa M Fowler APRN, NEGRITO [address] [address] Nurse Practitioner Advanced Practice Nurse 05/06/21 documented as of this encounter
--- OUTSIDE RECORDS SUMMARY | 2024-07-18 09:51 | XMS_ITS | Clinical Summary ---
Author Organization [facility] Address [address] [facility] [place] [address] Phone Care Team Providers Care Low Vision Therapist Name Role Phone ClementeTosha moncada Jose Ramon LABORATORY MILLER, TAPE LIBRARIAN Primary Care Provider Rosa M Fowler APRN, TAPE LIBRARIAN Unavailable Allergies Active Allergy Reactions Criticality Noted Date Comments Amitriptyline Rash,Vomiting Low 05/14/2020 Codeine Vomiting,Other (see Comments) Low 2020 DROWSY Hydromorphone Vomiting Low 05/14/2020 Meperidine Vomiting Low 05/14/2020 Medications albuterol 108 (90 Base) MCG/ACT Aerosol Solution take 2 Puffs by inhalation every 4 hours as needed. Active Benzonatate 200 MG Capsule Take 200 mg by mouth 3 times daily as needed. Active metoprolol Succinate (TOPROL-XL) 50 MG TABLET SR 24 HR metoprolol succinate ER 50 mg tablet,extended release 24 hr Active rosuvastatin (CRESTOR) 20 MG Tablet 1 Active isosorbide mononitrate (IMDUR) 30 MG TABLET SR 24 HR 1 Active QUEtiapine (SEROquel) 100 MG Tablet 1 Active cetirizine (ZyrTEC) 10 MG Tablet cetirizine 10 mg tablet 1 Active fluticasone (Flovent HFA) 110 MCG/ACT AerosolIndicatio ns:SOB (shortness of breath) take 2 Puffs by inhalation 2 times daily. 12 g 5 2 Active albuterol (ProAir HFA) 108 (90 Base) MCG/ACT Aerosol Solution take 2 Puffs by inhalation every 4 hours as needed for Wheezing. 18 g 5 2 Active azelastine (ASTELIN) 0.1 % Solution 1-2 Sprays by Nasal route 2 times daily. 30 mL 3 2 Active HYDROcodone-acet aminophen (NORCO) 5-325 MG TabletIndication s:Hematoma of left hand Take 1 Tablet by mouth every 4 hours as needed for Moderate or more severe pain. 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 SOB (shortness of breath) 04/18/2020 Cough 04/18/2020 Centrilobular emphysema 04/18/2020 Pulmonary HTN 04/18/2020 Non morbid obesity 04/18/2020 Resolved Problems Problem Noted Date Diagnosed Date Resolved Date COVID-19 04/18/2020 05/06/2021 Encounters Date Type Department Care Team Description 06/06/2024 3:17 PM CDT - 06/06/2024 11:59 PM CDT Hospital Encounter [facility] [address] [place] [address] Vivien Hines APRN, TAPE LIBRARIAN Discharge Disposition: Discharged to home or Selfcare 06/05/2024 Travel 05/05/2024 Transcribe Orders [facility] Scheduling [address] [place] [address] Vivien Hines APRN, TAPE LIBRARIAN Encounter for screening mammogram for breast cancer (Primary Dx) from Last 3 Months Family History Medical History Relation Name Comments Hypertension Father Arthritis Mother Hypertension Mother Relation Name Status Comments Father Mother Social History Tobacco Use Types Packs/Day Years Used Date Smoking Tobacco: Former Cigarettes Q uit: 02/23/2008 Smokeless Tobacco: Never Tobacco Cessation:Counseling Given: Not Answered Alcohol Use Standard Drinks/Week Comments Yes 0 (1 standard drink = 0.6 oz pur e alcohol) socially Sexually Active Control Partners Comments Not Currently Comments No Sex and Gender Information Value Date Recorded Sex Assigned at Not on file Legal Sex Female 12:01 AM CDT Gender Identity Not on file Sexual Orientation Not on file Last Filed Vital Signs Vital Sign Reading Time Taken Comments Blood Pressure 140/77 09/10/2023 10:00 PM CDT Pulse 65 09/10/2023 10:00 PM CDT Temperature 36.6 C (97.8 F) 09/10/2023 7:36 PM CDT Respiratory Rate 16 09/10/2023 10:00 PM CDT Oxygen Saturation 95% 09/10/2023 10:00 PM CDT Inhaled Oxygen Concentration - - Weight 91.6 kg (202 lb) 05/06/2021 10:36 AM CDT Height 160 cm (5' 3 ) 05/06/2021 10:36 AM CDT Body Mass Index 35.78 05/06/2021 10:36 AM CDT Plan of Treatment Health Maintenance Due Date Last Done Comments Hepatitis C Virus (HCV) Screening 1972 TdaP Immunization 1972 Hepatitis B Immunization (1 of 3 - 19+ 3-dose series) 12/21/1991 Pneumococcal Immunization (5 0+ years) (1 of 2 - PCV) 12/21/1991 Pap Smear 1993 Cervical Cancer Screening (CCS) 2002 HPV/Cotest 2002 Colonoscopy 2017 Colorectal Cancer Screening 2017 Cologuard 2022 Immunochemical Fecal Occult Blood 2022 Zoster Immunization (2 of 2) 02/27/2023 01/02/2023 SARS-COV-2 Immunization (4 - season) 2023 01/02/2023, 06/14/2020, 05/17/2020 Influenza Immunization (Seas on Ended) 2024 01/02/2023 Mammogram 06/06/2025 06/06/2024, 09/04/2022, 12/25/2020 Respiratory Syncytial Virus (RSV) Immunization (Adult) (1 - 1-dose 75+ series) 12/21/2047 Discussion re Starting/Frequency of Mammograms Discontinued 06/06/2024, 09/04/2022, 12/25/2020 Human Papillomavirus (HPV) Immunization Aged Out No longer eligible based on patient's age to complete this topic Meningococcal Immunization (ACWY) Aged Out No longer eligible based on patient's age to complete this topic Rotavirus Immunization Aged Out No lo nger eligible based on patient's age to complete this topic Procedures Procedure Name Priority Date/Time Associated Diagnosis Comments LUIS SCREENING BILATERAL DIGITAL W CAD W NORIS Routine 06/06/2024 4:01 PM CDT Encounter for screening mammogram for breast cancer from Last 3 Months Results * LUIS SCREENING BILATERAL DIGITAL W CAD W NORIS (06/06/2024 4:01 PM CDT) Anatomical Region Laterality Modality breast Bilateral Mammography 06/06/2024 3:21 PM CDT Narrative 06/07/2024 1:19 PM CDT - LUIS SCREENING BILATERAL DIGITAL W CAD W NORIS BILATERAL DIGITAL SCREENING MAMMOGRAM 3D/2D WITH CAD WITH EXAGGERATED CC MEDIOLATERAL OBLIQUE CRANIOCAUDAL: 06/06/2024 The study was acquired using digital technology and interpreted from soft copy. Current study was also evaluated with ICAD version 7.2. 2D digital mammographic views, as well as 3D digital tomosynthesis were performed in the CC and MLO projections. CLINICAL: Routine screening. Patient has no complaints. She has reduced range of motion. Personal history of skin cancer. No family history of breast cancer. COMPARISONS: Comparison is made to exams dated: 09/04/2022, 12/25/2020 [facility], and 08/24/2019 [facility]. BREAST TISSUE:The breasts are heterogeneously dense, which may obscure small masses. FINDINGS: No significant masses, calcifications, or other findings are seen in either breast. There has been no significant interval change. IMPRESSION: NEGATIVE There is no mammographic evidence of malignancy. A 1 year screening mammogram is recommended. A letter will be sent to the patient with these results. The patient will be entered into a reminder system with a target due date of 1 year for her next screening exam. Electronically signed by: Arlen torres/jordin:06/07/2024 09:23:39 Candy Spreader(s): RT Mildred(Esthela)(M), [facility] letter sent: Normal Exam Reading location: [facility] Mammogram BI-RADS: Category 1: Negative Procedure Note Arlen Riojas MD - 06/07/2024 - LUIS SCREENING BILATERAL DIGITAL W CAD W NORIS BILATERAL DIGITAL SCREENING MAMMOGRAM 3D/2D WITH CAD WITH EXAGGERATED CC MEDIOLATERAL OBLIQUE CRANIOCAUDAL: 06/06/2024 The study was acquired using digital technology and interpreted from soft copy. Current study was also evaluated with ICAD version 7.2. 2D digital mammographic views, as well as 3D digital tomosynthesis were performed in the CC and MLO projections. CLINICAL: Routine screening. Patient has no complaints. She has reduced range of motion. Personal history of skin cancer. No family history of breast cancer. COMPARISONS: Comparison is made to exams dated: 09/04/2022, 12/25/2020 [facility], and 08/24/2019 [facility]. BREAST TISSUE:The breasts are heterogeneously dense, which may obscure small masses. FINDINGS: No significant masses, calcifications, or other findings are seen in either breast. There has been no significant interval change. IMPRESSION: NEGATIVE There is no mammographic evidence of malignancy. A 1 year screening mammogram is recommended. A letter will be sent to the patient with these results. The patient will be entered into a reminder system with a target due date of 1 year for her next screening exam. Electronically signed by: Arlen torres/jordin:06/07/2024 09:23:39 Candy Spreader(s): RT Mildred(R)(M), [facility] letter sent: Normal Exam Reading location: [facility] Mammogram BI-RADS: Category 1: Negative Vivien Hines LABORATORY MILLER, TAPE LIBRARIAN IMG MAMMO ORDERA BLES Final Result from Last 3 Months Insurance [place]ICAID [place] Care Teams Low Vision Therapist Relationship Specialty Start Date End Date Tosha Clemente APRN, TAPE LIBRARIAN [address] [address] PCP - General Advanced Practice Nurse 02/02/20 Rosa M Fowler APRN, TAPE LIBRARIAN [address] [address] Nurse Practitioner Advanced Practice Nurse 05/06/21
--- OUTSIDE RECORDS SUMMARY | 2024-07-18 09:51 | XMS_ITS | Clinical Summary ---
Author Organization [facility] Address [address] [place] [id number] Phone Care Team Providers Care Sales Representative [employer] Name Role Phone Malcom Matthew MD Primary Care Provider Allergies Active Allergy Reactions Criticality Noted Date Comments Amitriptyline Rash Low 05/14/2020 Codeine Other (see comments) 03/22/2020 DROWSY Meperidine Vomiting 05/14/2020 Hydromorphone Vomiting 05/14/2020 Medications albuterol HFA (PROVENTIL HFA) 108 (90 Base) MCG/ACT inhaler Inhale 2 puffs Active benzonatate (TESSALON) 200 MG capsule Take 200 mg by mouth Active Active Problems Problem Noted Date Diagnosed Date Centrilobular emphysema 04/18/2020 Cough 04/18/2020 COVID-19 04/18/2020 Dyspnea 04/18/2020 Obesity 04/18/2020 Pulmonary hypertension 04/18/2020 Family History Medical History Relation Comments Hypertension Father COPD Mother Heart attack Mother Relation Status Comments Father Mother Social History Tobacco Use Types Packs/Day Years Used Date Smoking Tobacco: Former Cigarettes 1 25 Smokeless Tobacco: Never Alcohol Use Standard Drinks/Week Comments Not Currently 0 (1 standard drink = 0.6 oz pur e alcohol) Comments Unknown Sex and Gender Information Value Date Recorded Sex Assigned at Not on file Legal Sex Female 1:31 PM MST Gender Identity Not on file Sexual Orientation Not on file Last Filed Vital Signs Vital Sign Reading Time Taken Comments Blood Pressure 136/76 05/06/2020 11:00 AM CDT Pulse - - Temperature 36.6 C (97.9 F) 05/06/2020 11:00 AM CDT Respiratory Rate 18 05/06/2020 11:00 AM CDT Oxygen Saturation - - Inhaled Oxygen Concentration - - Weight 90.3 kg (199 lb) 05/06/2020 11:00 AM CDT Height 162.6 cm (5' 4 ) 05/06/2020 11:00 AM CDT Body Mass Index 34.16 05/06/2020 11:00 AM CDT Plan of Treatment Health Maintenance Due Date Last Done Comments Influenza Vaccine (Season Ended) [address] [place] [address] [place] [address] [place] Care Teams Sales Representative [employer] Relationship Specialty Start Date End Date Malcom Matthew MD [address] [place] [id number] PCP - General Family Medicine 04/04/20
== END 2024-07-18 09:48 | disposition home or self-care (01) ==
LOC: ANHBWCAUD 09:48
PROVIDERS: Visit Provider Otolaryngology
DX: H91.92 Unspecified hearing loss, left ear (principal)
CPT/HCPCS: 92557; 92567